=== PATIENT | female | born 1970 | race Hispanic/Latino ===

== ENCOUNTER 2017-01-04 17:11 | Emergency (ER) | payer MEDICAID ==
[2017-01-04] MEDS ORDERED: Sodium Chloride 0.9% 1,000 ML IV ONE (18:04)
[2017-01-04] MEDS ORDERED: Iohexol 240 (50 ml) PO STA (18:04)
[2017-01-04] MEDS ORDERED: Iohexol 240 (50 ml) ONE (18:23)
[2017-01-04] MEDS ORDERED: Sodium Chloride 0.9% 1,000 ML ONE (18:23)
[2017-01-04 18:26] LABS: BASO # 0.1 K/uL (0.0-0.2); BASO % 1.1 % (0.0-2.0); EOS # 0.2 K/uL (0.0-0.7); EOS % 1.9 % (0.0-4.0); HEMOGLOBIN 13.7 g/dL (11.0-16.0); LYMPH # 3.2 K/uL (1.0-4.3); LYMPH % 30.2 % (20.0-40.0); MEAN CORPUSCULAR HEMOGLOBIN 32.3 pg (27.0-31.0); MEAN CORPUSCULAR HGB CONC 34.2 g/dL (33.0-37.0); MONO # 0.6 K/uL (0.0-0.8); MONO % 5.6 % (0.0-10.0); NEUT # 6.5 K/uL (1.8-7.0); NEUT % 61.2 % (50.0-75.0); NRBC % 0.2 % (0.0-2.0); RBC 4.25 Mil/uL (3.80-5.20); RED CELL DISTRIBUTION WIDTH 14.5 % (11.5-14.5); WHITE BLOOD COUNT 10.6 K/uL (4.8-10.8)
[2017-01-04 18:28] LABS: MEAN CELL VOLUME 94.5 fL (81.0-99.0)
[2017-01-04 18:32] LABS: ALBUMIN 3.9 g/dL (3.5-5.0)
[2017-01-04 18:35] LABS: ALB/GLOB RATIO 1.5 (1.0-2.1); ALT/SGPT 31 U/L (9-52); AST/SGOT 29 U/L (14-36); BLOOD UREA NITROGEN 12 mg/dL (7-17); CALCIUM 7.8 mg/dl (8.6-10.4); GFR AFRICAN-AMERICAN > 60; GFR NON-AFRICAN AMERICAN > 60; LIPASE 155 U/L (23-300)
[2017-01-04 18:53] LABS: SQUAMOUS EPITHIAL 10 /hpf (0-5); URINE BACTERIA RARE (<OCC); URINE BILIRUBIN NEGATIVE (NEGATIVE); URINE BLOOD 2+ (NEGATIVE); URINE CLARITY Hazy (Clear); URINE COLOR Yellow (YELLOW); URINE GLUCOSE (UA) NORMAL (Normal); URINE LEUKOCYTE ESTERASE NEG Leu/uL (Negative); URINE NITRATE NEGATIVE (NEGATIVE); URINE PROTEIN NEGATIVE (NEGATIVE); URINE UROBILINOGEN NORMAL mg/dL (0.2-1.0)
[2017-01-04 18:56] LABS: HCG,QUALITATIVE URINE NEGATIVE (NEGATIVE)
[2017-01-04] MEDS ORDERED: Iohexol 300 100 ML IJ ONE (19:26)
--- NOTE | 2017-01-04 20:36 | CT ---
EXAM: CT Abdomen and Pelvis With Intravenous Contrast CLINICAL HISTORY: 46 years old, female; Pain and signs and symptoms; Bloating; Abdominal pain; Generalized; Additional info: Abd pain and distension. TECHNIQUE: Axial computed tomography images of the abdomen and pelvis with intravenous contrast. This CT exam was performed using one or more of the following dose reduction techniques: automated exposure control, adjustment of the mA and/or kV according to patient size, and/or use of iterative reconstruction technique. Coronal and sagittal reformatted images were created and reviewed. CONTRAST: 100 mL of omnipaque 300 administered intravenously. EXAM DATE/TIME: Exam ordered 01/04/2017 7:03 PM COMPARISON: CR - ABDOMEN (FLAT PLATE) 1VIEW 09/28/2015 5:05:26 PM FINDINGS: Lower thorax: No acute findings. ABDOMEN: Liver: The liver measures 18 cm in craniocaudal span. This may be acute due to the presence of a Roseanne's lobe. . Gallbladder and bile ducts: Unremarkable. No calcified stones. No ductal dilation. Pancreas: Unremarkable. No mass. No ductal dilation. Spleen: The spleen measures 10 cm in craniocaudal span Adrenals: Unremarkable. No mass. Kidneys and ureters: There is mild fullness of the central collecting systems bilaterally. . Stomach and bowel: Unremarkable. No obstruction. No mucosal thickening. Appendix: No findings to suggest acute appendicitis. PELVIS: Bladder: Unremarkable. No mass. Reproductive: The uterus appears enlarged measuring 11.6 x 6 x 9.4 cm A 2.4 cm cyst is noted in the left ovary. The right ovary is not deftly seen as a separate structure. ABDOMEN and PELVIS: Intraperitoneal space: Unremarkable. No free air. No significant fluid collection. Bones/joints: No acute fracture. No dislocation. Soft tissues: Unremarkable. Vasculature: Unremarkable. No abdominal aortic aneurysm. Lymph nodes: Unremarkable. No enlarged lymph nodes. IMPRESSION: 1. Mild fullness of the renal collecting systems bilaterally. The bladder is decompressed but the uterus is enlarged and exerting mass effect on the bladder 2. Enlarged liver which appears to be related to the presence of a Roseanne's lobe 3. 2.4 cm cyst in the left ovary . The size is considered within the range of normal for a menstruating female. The internal architecture of the cyst is better evaluated with ultrasound if this is clinically relevant
--- NOTE | 2017-01-04 21:12 | C.PDOC ---
Time Seen by Provider: 01/04/17 17:55 Chief Complaint (Nursing): Abdominal Pain History Per: Patient Onset/Duration Of Symptoms: Days (months), Waxing/Waning Current Symptoms Are (Timing): Still Present Severity: Moderate Location Of Pain/Discomfort: Diffuse, Epigastric Quality Of Discomfort: Unable To Describe, "Pain" Exacerbating Factors: Food Alleviating Factors: None Additional History Per: Prior Records Abnormal Vaginal Bleeding: No Past Medical History Reviewed: Historical Data, Nursing Documentation, Vital Signs Vital Signs: Last Vital Signs Temp 98.3 F 01/04/17 17:18 Pulse 89 01/04/17 17:18 Resp 13 01/04/17 17:18 BP 113/73 01/04/17 17:18 Pulse Ox 95 01/04/17 17:18 - Medical History PMH: Anxiety, Asthma, Post Traumatic Stress Disorder Surgical History: No Surg Hx Family History: States: Unknown Family Hx - Social History Hx Tobacco Use: Yes Hx Alcohol Use: Yes (DENIES 01/04/2017) Hx Substance Use: No - Immunization History Hx Tetanus Toxoid Vaccination: No Hx Influenza Vaccination: No Hx Pneumococcal Vaccination: No Review Of Systems Except As Marked, All Systems Reviewed And Found Negative. Constitutional: Negative for: Fever, Weakness Cardiovascular: Negative for: Chest Pain Respiratory: Negative for: Shortness of Breath Gastrointestinal: Positive for: Abdominal Pain. Negative for: Diarrhea Genitourinary: Negative for: Dysuria Musculoskeletal: Negative for: Neck Pain Skin: Negative for: Rash Neurological: Negative for: Weakness, Numbness, Seizures, Altered Mental Status Physical Exam - Physical Exam Appears: Non-toxic, No Acute Distress Skin: Normal Color, Warm, Dry, No Rash Head: Atraumatic, Normacephalic Eye(s): bilateral: Normal Inspection, PERRL, EOMI Neck: Normal ROM, Supple Cardiovascular: Rhythm Regular Respiratory: Normal Breath Sounds, No Accessory Muscle Use Gastrointestinal/Abdominal: Soft, Tenderness (nonspecific), Distention Back: No CVA Tenderness Extremity: Normal ROM, No Deformity Neurological/Psych: Oriented x3, Normal Motor, Normal Sensation ED Course And Treatment - Laboratory Results Result Diagrams: 01/04/17 18:21 01/04/17 18:21 Lab Interpretation: No Acute Changes Urine POC: Negative O2 Sat by Pulse Oximetry: 95 Pulse Ox Interpretation: Normal - CT Scan/US CT abd/pelv Other Rad Studies (CT/US): Read By Radiologist, Radiology Report Reviewed CT/US Interpretation: IMPRESSION: 1. Mild fullness of the renal collecting systems bilaterally. The bladder is. decompressed but the uterus is enlarged and exerting mass effect on the bladder. . 2. Enlarged liver which appears to be related to the presence of a Roseanne's lobe. . 3. 2.4 cm cyst in the left ovary . The size is considered within the range of. normal for a menstruating female. The internal architecture of the cyst is. better evaluated with ultrasound if this is clinically relevant Reassessment Condition: Improved Disposition Counseled Patient/Family Regarding: Studies Performed, Diagnosis, Need For Followup, Rx Given - Disposition Disposition: HOME/ ROUTINE Disposition Time: 21:13 Condition: STABLE Additional Instructions: Follow up with a Whipped Topping Supervisor and a Notching Press Operator for further evaluation and treatment. Return to the ER if you develop fever, vomiting, trouble urinating, worsening of symptoms or if you have any other concerns. Prescriptions: Pantoprazole Sodium [Protonix] 40 mg PO DAILY #14 ect Instructions: Uterine Fibroids (ED), Abdominal Pain (ED) Forms: [employer] (Slovenian) - Clinical Impression Clinical Impression: Enlarged uterus, Chronic abdominal pain
[2017-01-04 21:28] VITALS: BP 121/75; PULSE 87; RESP 16; TEMP 97.5; O2SAT 100
== END 2017-01-04 21:28 | disposition home or self-care (01) ==
LOC: C.ER 17:11
DX: G89.29 Other chronic pain (principal); R10.13 Epigastric pain; N85.2 Hypertrophy of uterus
CPT/HCPCS: 74177; 80053; 81001; 83690; 84703; 85025; 96361; 96374; 99284; J7040; Q9966; Q9967

== ENCOUNTER 2017-06-22 12:31 | Emergency (ER) | payer MEDICAID ==
[2017-06-22 12:38] VITALS: O2SAT 99
[2017-06-22] MEDS ORDERED: Belladonna-Phenobarbital PO STA (13:22)
[2017-06-22] MEDS ORDERED: Albuterol-Ipratrop 3 mg / 0.5 (3 ml) UD IH STA (13:23)
[2017-06-22] MEDS ORDERED: Lactated Ringer's 1,000 ML IVB STA (13:47)
[2017-06-22] MEDS ORDERED: Belladonna-Phenobarbital ONE (13:47)
[2017-06-22] MEDS ORDERED: Albuterol-Ipratrop 3 mg / 0.5 (3 ml) UD ONE (13:48)
[2017-06-22 14:08] LABS: BASO # 0.1 K/uL (0.0-0.2); BASO % 0.9 % (0.0-2.0); EOS # 0.1 K/uL (0.0-0.7); EOS % 1.4 % (0.0-4.0); HEMOGLOBIN 13.1 g/dL (11.0-16.0); LYMPH # 2.3 K/uL (1.0-4.3); LYMPH % 37.6 % (20.0-40.0); MEAN CELL VOLUME 94.7 fL (81.0-99.0); MEAN CORPUSCULAR HEMOGLOBIN 33.1 pg (27.0-31.0); MEAN PLATELET VOLUME 6.7 fL (7.2-11.7); MONO # 0.3 K/uL (0.0-0.8); MONO % 5.5 % (0.0-10.0); NEUT # 3.3 K/uL (1.8-7.0); NEUT % 54.6 % (50.0-75.0); RBC 3.96 Mil/uL (3.80-5.20); RED CELL DISTRIBUTION WIDTH 14.5 % (11.5-14.5); WHITE BLOOD COUNT 6.1 K/uL (4.8-10.8)
[2017-06-22 14:17] LABS: HCG,QUALITATIVE URINE NEGATIVE (NEGATIVE)
[2017-06-22 14:21] LABS: ALB/GLOB RATIO 1.4 (1.0-2.1); ALBUMIN 3.8 g/dL (3.5-5.0); ALT/SGPT 23 U/L (9-52); AST/SGOT 18 U/L (14-36); BLOOD UREA NITROGEN 12 mg/dL (7-17); CALCIUM 8.8 mg/dl (8.6-10.4); GFR AFRICAN-AMERICAN > 60; GFR NON-AFRICAN AMERICAN > 60; LIPASE 173 U/L (23-300); MAGNESIUM 1.8 mg/dL (1.6-2.3)
[2017-06-22 14:22] LABS: SQUAMOUS EPITHIAL 6 /hpf (0-5); URINE BACTERIA OCC (<OCC); URINE BILIRUBIN NEGATIVE (NEGATIVE); URINE BLOOD 2+ (NEGATIVE); URINE CLARITY Hazy (Clear); URINE COLOR Yellow (YELLOW); URINE GLUCOSE (UA) NORMAL (Normal); URINE LEUKOCYTE ESTERASE NEG Leu/uL (Negative); URINE NITRATE NEGATIVE (NEGATIVE); URINE PROTEIN NEGATIVE (NEGATIVE); URINE UROBILINOGEN NORMAL mg/dL (0.2-1.0)
--- NOTE | 2017-06-22 14:40 | RAD ---
HISTORY: Cough. Wheezing. COMPARISON: Chest x-ray performed 06/21/13 TECHNIQUE: Chest, one view. FINDINGS: LUNGS: No focal consolidation. Please note that chest x-ray has limited sensitivity for the detection of pulmonary masses. PLEURA: No significant pleural effusion identified. No definite pneumothorax . CARDIOVASCULAR: Heart size appears within normal limits. OSSEOUS STRUCTURES: No acute osseous abnormality identified. VISUALIZED UPPER ABDOMEN: Unremarkable. OTHER FINDINGS: None. IMPRESSION: No focal consolidation, significant pleural effusion, or definite pneumothorax identified.
--- NOTE | 2017-06-22 16:02 | C.PDOC ---
Time Seen by Provider: 06/22/17 13:10 Chief Complaint (Nursing): GI Problem History Per: Patient Onset/Duration Of Symptoms: Days (about 1 week) Current Symptoms Are (Timing): Still Present Associated Symptoms: Cough, Nasal Congestion, Nausea, Vomiting, Diarrhea Severity: Moderate Recent travel outside of the [place]: No Additional History Per: Prior Records Past Medical History Reviewed: Historical Data, Nursing Documentation, Vital Signs Vital Signs: Last Vital Signs Temp 97.9 F 06/22/17 12:34 Pulse 112 H 06/22/17 12:34 Resp 14 06/22/17 13:40 BP 126/79 06/22/17 12:34 Pulse Ox 99 06/22/17 12:34 - Medical History PMH: Anxiety, Asthma, Post Traumatic Stress Disorder Family History: States: Unknown Family Hx - Social History Hx Tobacco Use: Yes Hx Alcohol Use: Yes (DENIES 01/04/2017) Hx Substance Use: No - Immunization History Hx Tetanus Toxoid Vaccination: No Hx Influenza Vaccination: No Hx Pneumococcal Vaccination: No Review Of Systems Except As Marked, All Systems Reviewed And Found Negative. Cardiovascular: Negative for: Chest Pain Respiratory: Negative for: Shortness of Breath, Hemoptysis Gastrointestinal: Positive for: Nausea, Vomiting, Abdominal Pain, Diarrhea. Negative for: Melena, Hematochezia, Hematemesis Genitourinary: Negative for: Dysuria Musculoskeletal: Negative for: Neck Pain Skin: Negative for: Rash Neurological: Negative for: Weakness, Numbness Physical Exam - Physical Exam Appears: Non-toxic, No Acute Distress Skin: Normal Color, Warm, Dry, No Rash Head: Atraumatic, Normacephalic Eye(s): bilateral: Normal Inspection, PERRL, EOMI Neck: Normal ROM, Supple Cardiovascular: Rhythm Regular Respiratory: No Accessory Muscle Use, Wheezing Gastrointestinal/Abdominal: Soft, Tenderness (nonspecific) Back: No CVA Tenderness Extremity: Normal ROM Neurological/Psych: Oriented x3, Normal Motor, Normal Sensation ED Course And Treatment - Laboratory Results Result Diagrams: 06/22/17 14:03 06/22/17 14:03 Lab Interpretation: No Acute Changes Urine POC: Negative O2 Sat by Pulse Oximetry: 99 Pulse Ox Interpretation: Normal - Radiology CXR: Viewed By Me, Read By Radiologist CXR Interpretation: Yes: No Acute Disease Progress Note: After meds, lungs clear, abdominal pain resolved. Reassessment Condition: Improved Progress - Interventions Interventions:: Observation, Intravenous fluid - Medications Administered Inhaled nebulized: Anticholinergic, Beta-2 agonist Intravenous: Antiemetic, H-2 mayelin, NSAID - Data Reviewed Data Reviewed: Lab, Diagnostic imaging, Old records - Patient Status Patient status: Mostly improved - Continuity of Care Discussed patient case with:: Patient, ED Nurse - Patient Plan Patient Plan: Discharge, F/U with PCP, Continue present meds Disposition Counseled Patient/Family Regarding: Studies Performed, Diagnosis, Need For Followup, Rx Given - Disposition Disposition: HOME/ ROUTINE Disposition Time: 16:02 Condition: IMPROVED Additional Instructions: Drink plenty of fluids. Follow up with your doctor for further evaluation and treatment. Return to the ER if you develop shortness of breath, fever, not tolerating fluids, bloody stools, worsening of symptoms or if you have any other concerns. Prescriptions: Bismuth Subsalicylate [Pepto Bismol] 2 tab PO Q1 PRN #16 ctb PRN Reason: Diarrhea Ondansetron [Zofran] 4 mg PO Q8H PRN #15 tab PRN Reason: Nausea/Vomiting Instructions: Gastroenteritis (ED) Forms: [facility] (Maori) - Clinical Impression Clinical Impression: Influenza-like illness
[2017-06-22 16:40] VITALS: BP 120/72; PULSE 70; RESP 18; TEMP 98
== END 2017-06-22 16:40 | disposition home or self-care (01) ==
LOC: C.ER 12:31
DX: J11.1 Influenza due to unidentified influenza virus with other respiratory manifestations (principal)
CPT/HCPCS: 71045; 80053; 81001; 83690; 83735; 84703; 85025; 87804; 94640; 96374; 96375; 99285; J1885; J2405; J7120

== ENCOUNTER 2017-08-29 22:53 | Emergency (ER) | payer MEDICAID ==
[2017-08-29] MEDS ORDERED: Sodium Chloride 0.9% 1,000 ML IV ONE (23:36)
[2017-08-29] MEDS ORDERED: Alum-Mag Hydrox-Simethicone Susp (30 mL) PO STA (23:37)
[2017-08-29] MEDS ORDERED: Sodium Chloride 0.9% 1,000 ML ONE (23:57)
[2017-08-29] MEDS ORDERED: Alum-Mag Hydrox-Simethicone Susp (30 mL) ONE (23:57)
[2017-08-30 00:03] LABS: BASO # 0.1 K/uL (0.0-0.2); BASO % 0.6 % (0.0-2.0); EOS % 0.5 % (0.0-4.0); HEMOGLOBIN 13.7 g/dL (11.0-16.0); LYMPH # 2.1 K/uL (1.0-4.3); MEAN CELL VOLUME 96.5 fL (81.0-99.0); MEAN CORPUSCULAR HEMOGLOBIN 32.4 pg (27.0-31.0); MEAN CORPUSCULAR HGB CONC 33.6 g/dL (33.0-37.0); MEAN PLATELET VOLUME 6.9 fL (7.2-11.7); MONO # 0.6 K/uL (0.0-0.8); MONO % 6.9 % (0.0-10.0); NEUT # 5.9 K/uL (1.8-7.0); NRBC % 0.1 % (0.0-2.0); RBC 4.21 Mil/uL (3.80-5.20); RED CELL DISTRIBUTION WIDTH 15.7 % (11.5-14.5); WHITE BLOOD COUNT 8.6 K/uL (4.8-10.8)
[2017-08-30 00:07] LABS: ALB/GLOB RATIO 1.3 (1.0-2.1); ALBUMIN 4.4 g/dL (3.5-5.0); ALT/SGPT 45 U/L (9-52); AST/SGOT 58 U/L (14-36); BLOOD UREA NITROGEN 25 mg/dL (7-17); CALCIUM 9.3 mg/dl (8.6-10.4); GFR AFRICAN-AMERICAN > 60; GFR NON-AFRICAN AMERICAN > 60; LIPASE 299 U/L (23-300)
--- NOTE | 2017-08-30 00:27 | C.PDOC ---
Time Seen by Provider: 08/29/17 23:36 Chief Complaint (Nursing): Abdominal Pain History Per: Patient Onset/Duration Of Symptoms: Days, Waxing/Waning Current Symptoms Are (Timing): Worse Severity: Moderate Location Of Pain/Discomfort: Epigastric Radiation Of Pain To:: Chest Quality Of Discomfort: Burning Associated Symptoms: Nausea, Vomiting Exacerbating Factors: Food Additional History Per: Prior Records Past Medical History Reviewed: Historical Data, Nursing Documentation, Vital Signs Vital Signs: Last Vital Signs Temp 97.6 F 08/29/17 23:08 Pulse 102 H 08/29/17 23:08 Resp 16 08/29/17 23:08 BP 146/79 08/29/17 23:08 Pulse Ox 98 08/29/17 23:08 - Medical History PMH: Anxiety, Asthma, Hiatal Hernia, Post Traumatic Stress Disorder Family History: States: Unknown Family Hx - Social History Hx Tobacco Use: Yes Hx Alcohol Use: No Hx Substance Use: No - Immunization History Hx Tetanus Toxoid Vaccination: No Hx Influenza Vaccination: No Hx Pneumococcal Vaccination: No Review Of Systems Except As Marked, All Systems Reviewed And Found Negative. Constitutional: Negative for: Fever, Weakness Respiratory: Negative for: Shortness of Breath, Hemoptysis Gastrointestinal: Positive for: Nausea, Vomiting, Abdominal Pain. Negative for : Diarrhea, Constipation, Melena, Hematochezia, Hematemesis Musculoskeletal: Negative for: Neck Pain Skin: Negative for: Rash Neurological: Negative for: Weakness, Numbness, Headache Physical Exam - Physical Exam Appears: Non-toxic, No Acute Distress Skin: Normal Color, Warm, Dry, No Rash Head: Atraumatic, Normacephalic Eye(s): bilateral: Normal Inspection, PERRL, EOMI Neck: Normal ROM, Supple Cardiovascular: Rhythm Regular Respiratory: Normal Breath Sounds, No Accessory Muscle Use Gastrointestinal/Abdominal: Soft, Tenderness (epigastric), No Guarding, No Rebound Back: No CVA Tenderness Extremity: Normal ROM Neurological/Psych: Oriented x3, Normal Motor, Normal Sensation ED Course And Treatment - Laboratory Results Result Diagrams: 08/29/17 23:51 08/29/17 23:51 Interpretation Of Abnormal: Elevated BUN. ECG: Interpreted By Me, Viewed By Me ECG Rhythm: Sinus Tachycardia, Nonspecific Changes Rate From EC O2 Sat by Pulse Oximetry: 98 Pulse Ox Interpretation: Normal Progress Note: Pt feels better and wants to go home. Reassessment Condition: Improved Progress - Interventions Interventions:: Observation, Intravenous fluid - Medications Administered Oral: Antacid Intravenous: Antiemetic, H-2 mayelin - Data Reviewed Data Reviewed: Lab, EKG, Old records - Patient Status Patient status: Mostly improved - Continuity of Care Discussed patient case with:: Patient, ED Nurse - Patient Plan Patient Plan: Discharge, F/U with PCP, Continue present meds Disposition Counseled Patient/Family Regarding: Studies Performed, Diagnosis, Need For Followup, Rx Given - Disposition Referrals: Spencer Nair MD [Staff Provider] - Disposition: HOME/ ROUTINE Disposition Time: 00:29 Condition: IMPROVED Additional Instructions: Continue taking your Nexium. Follow up with a [facility] Consultant within 1-2 weeks for further evaluation and treatment. Return to the ER if you develop fever, vomiting, bloody or black stools, worsening of symptoms or if you have any other concerns. Prescriptions: Metoclopramide [Reglan] 1 tab PO TID PRN #15 tab PRN Reason: Nausea/Vomiting Sucralfate [Carafate Tab] 1 gm PO QID #120 tab Instructions: Gastritis (DC) Forms: [facility] (Sinhala) - Clinical Impression Clinical Impression: Epigastric pain
[2017-08-30 11:55] VITALS: BP 117/76; PULSE 96; RESP 20; TEMP 98; O2SAT 99
--- NOTE | 2017-09-03 21:18 | CARD ---
APPROVED REPORT EKG Measurement Heart [id number] <Conclusion> Sinus tachycardia Otherwise normal ECG
== END 2017-08-30 01:05 | disposition home or self-care (01) ==
LOC: C.ER 22:53
DX: R10.13 Epigastric pain (principal); Z72.0 Tobacco use
CPT/HCPCS: 80053; 83690; 84484; 85025; 96374; 96375; 99285; J2765; J7040

== ENCOUNTER 2017-09-25 09:44 | Emergency (ER) | payer MEDICAID ==
--- NOTE | 2017-09-25 11:22 | C.PDOC ---
History Of Present Illness 46 y/o female presents to the ED complaining of right hand and wrist pain, onset today. States at the gym this morning she was lifting weights and put the weight down in a weird way. Now complaining of pain at the 1st MCP area shooting to the right wrist. No changes in sensation. Patient is able to move all digits. Time Seen by Provider: 09/25/17 10:27 Chief Complaint (Nursing): Finger,Hand,&Wrist History Per: Patient History/Exam Limitations: no limitations Onset/Duration Of Symptoms: Hrs Current Symptoms Are (Timing): Still Present Past Medical History Reviewed: Historical Data, Nursing Documentation, Vital Signs Vital Signs: Last Vital Signs Temp 98.4 F 09/25/17 11:38 Pulse 86 09/25/17 11:38 Resp 18 09/25/17 11:38 BP 114/68 09/25/17 11:38 Pulse Ox 95 09/25/17 13:58 - Medical History PMH: Anxiety, Asthma, Hiatal Hernia, Post Traumatic Stress Disorder Denies: Chronic Kidney Disease Other Surgeries: Abdominal laparoscopy Family History: States: Unknown Family Hx - Social History Hx Tobacco Use: Yes Hx Alcohol Use: Yes Hx Substance Use: No - Immunization History Hx Tetanus Toxoid Vaccination: No Hx Influenza Vaccination: No Hx Pneumococcal Vaccination: No Review Of Systems Except As Marked, All Systems Reviewed And Found Negative. Musculoskeletal: Positive for: Hand Pain Skin: Negative for: Lesions Neurological: Negative for: Weakness, Numbness Physical Exam - Physical Exam Appears: Non-toxic, No Acute Distress Skin: Normal Color, Warm, Dry Extremity: Tenderness (to the right thumb and along radial aspect of wrist), No Deformity, No Swelling (or erythema), Other Pulses: Left Radial: Normal, Right Radial: Normal Neurological/Psych: Oriented x3, Normal Speech ED Course And Treatment O2 Sat by Pulse Oximetry: 95 (RA) Pulse Ox Interpretation: Normal - Other Rad X-RAY R WRIST X-Ray: Viewed By Me, Read By Radiologist Interpretation: FINDINGS: BONES: No acute fracture or destructive bony lesion identified. The navicular bone appears intact. JOINTS: Normal. No dislocation. SOFT TISSUES: Normal. OTHER FINDINGS: None. IMPRESSION: Unremarkable right wrist radiographs. X-RAY R HAND X-Ray: Viewed By Me, Read By Radiologist Interpretation: FINDINGS: BONES: Old healed 5th metacarpal boxer's fracture. No acute fracture identified. No destructive bony lesion appreciable throughout. JOINTS: Normal. No osteoarthritic changes. SOFT TISSUES: Normal. OTHER FINDINGS: None. IMPRESSION: No acute fracture, subluxation or dislocation. Old healed right 5th metacarpal boxer's fracture identified. Medical Decision Making Medical Decision Making: Impression: 46 y/o with right wrist and hand pain Plan: * x-ray right hand * x-ray right wrist X-ray results discussed with patient. Patient is stable for d/c home. Counseled regarding diagnosis of sprain. Thumb spica splint applied by laser/electro optics technician and checked by me. Referral to hand specialist provided. Disposition - Disposition Referrals: Oscar Moore MD [Staff Provider] - Disposition: HOME/ ROUTINE Disposition Time: 11:20 Condition: STABLE Additional Instructions: Follow up with Hand specialist within 2-3 days. Return to ED if feel worse. Prescriptions: Ibuprofen [Motrin Tab] 400 mg PO Q8 #30 tab Instructions: Finger Sprain (DC) Forms: [employer] (Spanish), School Excuse - Clinical Impression Clinical Impression: Thumb sprain - PA / SUCTION WORKER / Resident Statement MD/DO has reviewed & agrees with the documentation as recorded. - Scribe Statement The provider has reviewed the documentation as recorded by the Scribe (Marisabel Song) All medical record entries made by the Scribe were at my direction and personally dictated by me. I have reviewed the chart and agree that the record accurately reflects my personal performance of the history, physical exam, medical decision making, and the department course for this patient. I have also personally directed, reviewed, and agree with the discharge instructions and disposition.
--- NOTE | 2017-09-25 11:34 | RAD ---
PROCEDURE: Right Hand Radiographs. HISTORY: injury COMPARISON: None. FINDINGS: BONES: Old healed 5th metacarpal boxer's fracture. No acute fracture identified. No destructive bony lesion appreciable throughout. JOINTS: Normal. No osteoarthritic changes. SOFT TISSUES: Normal. OTHER FINDINGS: None. IMPRESSION: No acute fracture, subluxation or dislocation. Old healed right 5th metacarpal boxer's fracture identified.
--- NOTE | 2017-09-25 11:35 | RAD ---
PROCEDURE: Right Wrist Radiographs. HISTORY: injury COMPARISON: None. FINDINGS: BONES: No acute fracture or destructive bony lesion identified. The navicular bone appears intact. JOINTS: Normal. No dislocation. SOFT TISSUES: Normal. OTHER FINDINGS: None. IMPRESSION: Unremarkable right wrist radiographs.
[2017-09-25 11:39] VITALS: BP 114/68; PULSE 86; RESP 18; TEMP 98.4
[2017-09-25 13:39] VITALS: O2SAT 95
== END 2017-09-25 11:40 | disposition home or self-care (01) ==
LOC: C.ER 09:44
DX: S63.601A Unspecified sprain of right thumb, initial encounter (principal); X50.0XXA Overexertion from strenuous movement or load, initial encounter; Z72.0 Tobacco use

== ENCOUNTER 2018-08-11 19:15 | Inpatient (IN) | payer MEDICAID ==
[2018-08-11] MEDS ORDERED: Sodium Chloride 0.9% 1,000 ML IV ONE (19:47)
[2018-08-11] MEDS ORDERED: Sucralfate 1 gm/10 ml Oral Susp UD PO STA (19:47)
--- NOTE | 2018-08-11 19:49 | C.PDOC ---
History Of Present Illness 47 year old female presents to the ED c/o abdominal discomfort after eating. Patient reports she had hernia in the past. Patient denies fever, chills, nausea, vomit, diarrhea, rash, dysuria, hematuria, weakness, numbness. Chief Complaint (Nursing): GI Problem History Per: Patient History/Exam Limitations: no limitations Onset/Duration Of Symptoms: Days Current Symptoms Are (Timing): Still Present Context: Food Location Of Pain/Discomfort: Epigastric Radiation Of Pain To:: Other Quality Of Discomfort: "Pain" Associated Symptoms: denies: Nausea, Vomiting, Diarrhea, Urinary Symptoms Exacerbating Factors: Food Recent travel outside of the [place]: No Additional History Per: Patient Abnormal Vaginal Bleeding: No Past Medical History Reviewed: Historical Data, Nursing Documentation, Vital Signs Vital Signs: Last Vital Signs Temp 98.4 F 08/11/18 19:27 Pulse 101 H 08/11/18 19:27 Resp 20 08/11/18 19:27 BP 125/78 08/11/18 19:27 Pulse Ox 98 08/11/18 19:27 - Medical History PMH: Anxiety, Asthma, Hiatal Hernia, Post Traumatic Stress Disorder Denies: Chronic Kidney Disease Surgical History: No Surg Hx Family History: States: Unknown Family Hx - Social History Hx Tobacco Use: Yes Hx Alcohol Use: Yes Hx Substance Use: No - Immunization History Hx Tetanus Toxoid Vaccination: No Hx Influenza Vaccination: No Hx Pneumococcal Vaccination: No Review Of Systems Constitutional: Negative for: Fever, Chills Cardiovascular: Negative for: Chest Pain Respiratory: Negative for: Shortness of Breath Gastrointestinal: Positive for: Abdominal Pain. Negative for: Nausea, Vomiting, Diarrhea Genitourinary: Negative for: Dysuria, Hematuria Musculoskeletal: Negative for: Back Pain Skin: Negative for: Rash Physical Exam - Physical Exam Appears: Non-toxic, No Acute Distress Skin: Normal Color, Warm, Dry Head: Atraumatic, Normacephalic Eye(s): bilateral: Normal Inspection Oral Mucosa: Moist Neck: Normal ROM Chest: Symmetrical Cardiovascular: Rhythm Regular Respiratory: Normal Breath Sounds, No Rales, No Rhonchi, No Wheezing Gastrointestinal/Abdominal: Soft, Tenderness (epigastric), No Guarding, No Rebound Back: No CVA Tenderness Extremity: Normal ROM, No Tenderness, No Swelling Neurological/Psych: Oriented x3, Normal Speech, Normal Cognition Gait: Steady ED Course And Treatment - Laboratory Results Result Diagrams: 08/11/18 20:06 08/11/18 20:06 ECG: Interpreted By Me, Viewed By Me ECG Rhythm: Sinus Rhythm ECG Interpretation: Normal Interpretation Of ECG: NSR< nofrmal tracings. Rate From EC O2 Sat by Pulse Oximetry: 98 (ON RA) Pulse Ox Interpretation: Normal - Radiology CXR: Interpreted by Me, Viewed By Me CXR Interpretation: Yes: No Acute Disease, Other (normal chest film). No: Infiltrates - CT Scan/US CT abd/pelvis Other Rad Studies (CT/US): Read By Radiologist, Radiology Report Reviewed CT/US Interpretation: EXAM: CT Abdomen and Pelvis with IV contrast. CLINICAL HISTORY: PATIENT WITH MID UPPER GASTRIC PAIN. TECHNIQUE: Axial computed tomography images of the abdomen and pelvis with oral and intravenous contrast. 0.00 mGy-cm. CONTRAST: With; VISI 320 100MLS. COMPARISON: None provided. FINDINGS: LUNG BASES: The lung bases appear clear. No pleural effusions are seen. LIVER: Unremarkable. GALLBLADDER AND BILE DUCTS: The gallbladder appears within normal limits. No radioopaque gallstones are seen. No biliary ductal dilatation is evident. PANCREAS: Unremarkable. SPLEEN: Unremarkable. ADRENAL GLANDS: Unremarkable. KIDNEYS, URETERS, AND BLADDER: The kidneys appear within normal limits. There is no hydronephrosis or hydroureter. No urinary calculi are seen. STOMACH AND BOWEL: Small hiatal hernia is noted. Thick walled fluid filled duodenum and loops of jejunum as well as ileum compatible with enteritis. Thick walled fluid filled colon is noted with involvement of all segments compatible with diffuse pancolitis. Infectious and inflammatory etiologies are considered. APPENDIX: No evidence of acute appendicitis on CT examination. PERITONEUM: No free fluid. No free air. LYMPH NODES: No lymphadenopathy is evident. REPRODUCTIVE: Unremarkable as visuali zed. VASCULATURE: No evidence of abdominal aortic aneurysm. BONES: No aggressive appearing osseous lesion. No acute osseous pathology evident. IMPRESSION: 1. Small hiatal hernia is noted. 2. Enterocolitis. Infectious and inflammatory etiologies are considered. . Electronically signed on Aug 11, 2018 11:48:23 PM EDT by: Miguel Fernandez M.D., KAUSHIK Certified By ABR & CBCCT. Fellowship Trained MRI and CT Specialist Medical Decision Making Medical Decision Making: Plan: * EKG * Labs * Carafate 1 gm * Protonix 40 mg IVP * IV fluids * UA Disposition Discussed With Dr.: Hansel Martin Doctor Will See Patient In The: Hospital Counseled Patient/Family Regarding: Diagnosis - Disposition Disposition: HOSPITALIZED Disposition Time: 00:35 Condition: STABLE Instructions: Hiatal Hernia (DC) Forms: [employer] (Romanian) - Clinical Impression Clinical Impression: Hiatal hernia, Colitis, acute, Enteritis, Abdominal pain - Scribe Statement The provider has reviewed the documentation as recorded by the Scribe Dilan Michael All medical record entries made by the Scribe were at my direction and personally dictated by me. I have reviewed the chart and agree that the record accurately reflects my personal performance of the history, physical exam, medical decision making, and the department course for this patient. I have also personally directed, reviewed, and agree with the discharge instructions and disposition.
[2018-08-11 20:06] LABS: HCG,QUALITATIVE URINE NEGATIVE (NEGATIVE)
[2018-08-11] MEDS ORDERED: Sodium Chloride 0.9% 1,000 ML ONE (20:06)
[2018-08-11 20:08] LABS: SQUAMOUS EPITHIAL 2 /hpf (0-5); URINE BACTERIA RARE (<OCC); URINE BILIRUBIN NEGATIVE (NEGATIVE); URINE CLARITY Clear (Clear); URINE COLOR Yellow (YELLOW); URINE GLUCOSE (UA) NORMAL (Normal); URINE LEUKOCYTE ESTERASE NEG Leu/uL (Negative); URINE PROTEIN NEGATIVE (NEGATIVE); URINE UROBILINOGEN NORMAL mg/dL (0.2-1.0)
[2018-08-11 20:10] LABS: BASO # 0.1 K/uL (0.0-0.2); BASO % 0.7 % (0.0-2.0); EOS # 0.1 K/uL (0.0-0.7); EOS % 1.1 % (0.0-4.0); HEMOGLOBIN 12.8 g/dL (11.0-16.0); LYMPH # 2.2 K/uL (1.0-4.3); MEAN CELL VOLUME 96.7 fL (81.0-99.0); MEAN CORPUSCULAR HEMOGLOBIN 32.3 pg (27.0-31.0); MEAN CORPUSCULAR HGB CONC 33.4 g/dL (33.0-37.0); MEAN PLATELET VOLUME 6.9 fL (7.2-11.7); MONO # 0.3 K/uL (0.0-0.8); MONO % 3.9 % (0.0-10.0); NEUT # 5.4 K/uL (1.8-7.0); NEUT % 67.3 % (50.0-75.0); NRBC % 0.1 % (0.0-2.0); RBC 3.97 Mil/uL (3.80-5.20); RED CELL DISTRIBUTION WIDTH 14.6 % (11.5-14.5)
[2018-08-11 20:12] LABS: URINE BLOOD TRACE-LYSED (NEGATIVE)
[2018-08-11 20:25] LABS: ALB/GLOB RATIO 1.8 (1.0-2.1); ALBUMIN 4.1 g/dL (3.5-5.0); ALT/SGPT 29 U/L (9-52); AST/SGOT 29 U/L (14-36); BLOOD UREA NITROGEN 14 mg/dL (7-17); CALCIUM 8.6 mg/dl (8.6-10.4); GFR NON-AFRICAN AMERICAN > 60; LIPASE 348 U/L (23-300)
[2018-08-11] MEDS ORDERED: Iohexol 240 (50 ml) ONE (20:36)
[2018-08-11] MEDS ORDERED: Iohexol 240 (50 ml) PO ONE (20:38)
[2018-08-11] MEDS ORDERED: Iodixanol 320 MG/ML 100 ML BOTTLE IV ONE (22:01)
[2018-08-12] MEDS ORDERED: Ciprofloxacin 400mg/200ml D5W 400 MG/200 ML BAG IVPB STA (00:40)
[2018-08-12] MEDS ORDERED: metroNIDAZOLE IV 500 mg/100 ml 500 MG/100 ML BAG ONE (00:47)
[2018-08-12] MEDS: metroNIDAZOLE IV 500 mg/100 ml 500 MG/100 ML BAG IVPB SCH ×3 (00:55→17:38)
[2018-08-12 01:43] VITALS: RESP 20
[2018-08-12] MEDS: Sodium Chloride 0.9% 1,000 ML IV SCH ×3 (04:08→21:57)
--- NOTE | 2018-08-12 08:27 | CP.PCM.PN ---
Subjective - Date & Time of Evaluation Date of Evaluation: 08/12/18 Time of Evaluation: 08:27 - Subjective Subjective: Medicine Progress Note - Dr Wilfredo Martin's Service Patient is a 47 year old female with past medical history of asthma and acid reflux who presented to the emergency department for worsening epigastric pain. Patient states that for the past 4 days after eating she feels like her food gets stuck in her chest. She reports having 4-5 episodes of vomiting two days ago. Patient reports that her last bowel movement was yesterday and it was soft. For acid reflux she takes zantac occasionally. Patient states that she had an endoscopy 10 years ago that showed a hiatal hernia and a colonoscopy one year ago that showed diverticulosis. Currently she is resting and offers no complaints. Denies headaches, dizziness, cp, palpitations, sob, blood in stool, melena, changes in weight, urinary symptoms. Allergies: NKDA Medications: Ventolin inhaler, Zantac Medical History: Asthma, Acid reflux Surgical History: Multiple laparoscopies, exploratory laparotomy Social History: smokes 4 cig/day, drinks alcohol occasionally, denies history of drug use Family History: Grandparents - Colon cancer, Mother - breast cancer Objective - Vital Signs/Intake and Output Vital Signs (last 24 hours): Temp Pulse Resp BP Pulse Ox 98.5 F 83 20 108/74 98 08/12/18 07:34 08/12/18 07:34 08/12/18 07:34 08/12/18 07:34 08/12/18 07:34 Intake and Output: 08/12/18 08/12/18 06:59 18:59 Intake Total 350 Balance 350 - Medications Medications: Current Medications Enoxaparin Sodium (Lovenox) 40 mg SC DAILY [facility] Metronidazole (Flagyl) 500 mg in 100 mls @ 100 mls/hr IVPB STAT [facility]; Protocol Last Admin: 08/12/18 00:55 Dose: 100 mls/hr Ciprofloxacin (Cipro 400mg/200ml Dsw) 400 mg in 200 mls @ 133 mls/hr IVPB Q12H [facility]; Protocol Sodium Chloride (Sodium Chloride 0.9%) 1,000 mls @ 75 mls/hr IV .[id number] [facility] Last Admin: 08/12/18 04:08 Dose: 75 mls/hr Metronidazole (Flagyl) 500 mg in 100 mls @ 100 mls/hr IVPB Q8H [facility]; Protocol Influenza Virus Vaccine (Flucelvax Quad 9582-1360 Syr) 60 mcg IM .ONCE ONE Stop: 08/14/18 10:01 Morphine Sulfate (Morphine) 2 mg IVP Q4 PRN PRN Reason: Pain, moderate (4-7) Pantoprazole Sodium (Protonix Ec Tab) 40 mg PO DAILY [facility] Pneumococcal Polyvalent Vaccine (Pneumovax 23 Vaccine) 0.5 ml IM .ONCE ONE Stop: 08/14/18 10:01 - Labs Labs: 08/11/18 20:06 08/11/18 20:06 - Constitutional Appears: Toxic, No Acute Distress - Head Exam Head Exam: ATRAUMATIC, NORMAL INSPECTION, NORMOCEPHALIC - Eye Exam Eye Exam: EOMI, Normal appearance - ENT Exam ENT Exam: Mucous Membranes Moist - Respiratory Exam Respiratory Exam: Wheezes, NORMAL BREATHING PATTERN - Cardiovascular Exam Cardiovascular Exam: REGULAR RHYTHM, +S1, +S2 - GI/Abdominal Exam GI & Abdominal Exam: Distended, Soft, Tenderness (diffuse). absent: Firm, Guarding, Rigid - Extremities Exam Extremities Exam: Normal Inspection - Neurological Exam Neurological Exam: Alert, Awake, Oriented x3 - Psychiatric Exam Psychiatric exam: Normal Affect, Normal Mood - Skin Skin Exam: Normal Color Assessment and Plan - Assessment and Plan (Free Text) Assessment: Abdominal Pain -Stable, afebrile -Antibiotics: Flagyl 500mg Q8H, Cipro 400mg Q12H IVPB -Stool studies ordered -On clear liquid diet -CT abd/pelvis showed Apparent mild circumferential mural thickening in the gastric pylorus, duodenal cap and segmental proximal jejunal loops are nonspecific however could represent nonspecific infectious/inflammatory gastritis, duodenitis and enteritis. Clinical follow-up is advised. Constipation. No bowel obstruction. Mild hepatomegaly and fatty liver. -GI on consult, Dr Lorenzo, help appreciated Asthma -Duonebs x 1 ordered GI/DVT ppx: -Protonix 40mg PO daily -Lovenox 40mg SC daily Plan discussed with Dr Wilfredo Monae DO PGY-2
--- NOTE | 2018-08-12 08:29 | CP.PCM.CON ---
<Aury Jaime - Last Filed: 08/12/18 11:39> History of Present Illness - History of Present Illness History of Present Illness: Gastroenterology Fellow/PGY6 Consult Note 47 year old female with PMH of Anxiety, Asthma, and PTSD presenting with abdominal pain. Patient notes progressive postprandial epigastric pain with globus sensation to solids and liquids for the last four days. She attempted to take leftover antibiotic at home without relief for first three days for possible respiratory infection. Associated bilious vomiting of five episodes two days ago. Also describes heartburn, acid reflux, nausea, and intermittent diffuse nonspecific dull abdominal pain that she notes to be chronic in nature for most of her life. She takes Zantac daily with nexium used as needed to control symptoms of reflux. Admits to chronic alternating bowel habits with predominant formed stools and intermittent remote diarrhea for two days with spontaneous resolution. Last bowel movement in ER described as loose stool. Admits to chronic GI issues since childhood leading to laporoscopy and stated prior diagnosis of possible Crohn's and endorses different "treatments" without relief. Denies sick contacts, new foods, recent travel, rectal bleeding, skin rashes, back/hip pain, kidney stones, eye pain/redness, or unintentional weight loss. Notes prior EGD about ten years ago endorsed to have a hiatal hernia. Endorses colonoscopy one year ago to show diverticulosis. Family History- Colon cancer- maternal and paternal grandmothers- diagnosed at 50s and 60s years of age, paternal grandfather- diagnosed 60s years of age Social History- prior heavy tobaccox many years, current 4 cigarettes daily, prior daily alcohol use, endorses sobriety for a "few months"; denies illicit drug use Surgical History- laparoscopy Review of Systems - Review of Systems Review of Systems: 12-point review of systems negative except for as above Past Patient History - Infectious Disease Hx of Infectious Diseases: None - Past Medical History & Family History Past Medical History?: Yes - Past Social History Smoking Status: Light Smoker < 10 Cigarettes Daily - CARDIAC Hx Cardiac Disorders: No - PULMONARY Hx Respiratory Disorders: Yes Hx Asthma: Yes - NEUROLOGICAL Hx Neurological Disorder: No - HEENT Hx HEENT Problems: No - RENAL Hx Chronic Kidney Disease: No - ENDOCRINE/METABOLIC Hx Endocrine Disorders: No - HEMATOLOGICAL/ONCOLOGICAL Hx Blood Disorders: No - INTEGUMENTARY Hx Dermatological Problems: No - MUSCULOSKELETAL/RHEUMATOLOGICAL Hx Musculoskeletal Disorders: No Hx Falls: No - GASTROINTESTINAL Hx Gastrointestinal Disorders: No - GENITOURINARY/GYNECOLOGICAL Hx Genitourinary Disorders: No - PSYCHIATRIC Hx Psychophysiologic Disorder: Yes Hx Anxiety: Yes Hx Post Traumatic Stress Disorder: Yes Hx Substance Use: No - SURGICAL HISTORY Hx Surgeries: Yes Hx Breast Biopsy: Yes Other/Comment: abdominal laparoscopy. removal of basal cell to skin on upper chest - ANESTHESIA Hx Anesthesia: Yes Hx Anesthesia Reactions: No Hx Malignant Hyperthermia: No Meds Allergies/Adverse Reactions: Allergies Allergy/AdvReac Type Severity Reaction Status Date / Time No Known Allergies Allergy Verified 08/11/18 19:33 - Medications Medications: Current Medications Enoxaparin Sodium (Lovenox) 40 mg SC DAILY [facility] Metronidazole (Flagyl) 500 mg in 100 mls @ 100 mls/hr IVPB STAT [facility]; Protocol Last Admin: 08/12/18 00:55 Dose: 100 mls/hr Ciprofloxacin (Cipro 400mg/200ml Dsw) 400 mg in 200 mls @ 133 mls/hr IVPB Q12H [facility]; Protocol Sodium Chloride (Sodium Chloride 0.9%) 1,000 mls @ 75 mls/hr IV .[id number] [facility] Last Admin: 08/12/18 04:08 Dose: 75 mls/hr Metronidazole (Flagyl) 500 mg in 100 mls @ 100 mls/hr IVPB Q8H [facility]; Protocol Influenza Virus Vaccine (Flucelvax Quad [id number] Syr) 60 mcg IM .ONCE ONE Stop: 08/14/18 10:01 Morphine Sulfate (Morphine) 2 mg IVP Q4 PRN PRN Reason: Pain, moderate (4-7) Pantoprazole Sodium (Protonix Ec Tab) 40 mg PO DAILY [facility] Pneumococcal Polyvalent Vaccine (Pneumovax 23 Vaccine) 0.5 ml IM .ONCE ONE Stop: 08/14/18 10:01 Physical Exam - Constitutional Appears: Non-toxic, No Acute Distress - Head Exam Head Exam: ATRAUMATIC, NORMOCEPHALIC - Eye Exam Eye Exam: EOMI, PERRL. absent: Scleral icterus Pupil Exam: PERRL. absent: Miosis, Mydriatic - ENT Exam ENT Exam: Mucous Membranes Moist, Normal Oropharynx - Neck Exam Neck exam: Positive for: Full Rom, Normal Inspection - Respiratory Exam Respiratory Exam: Clear to Auscultation Bilateral. absent: Rales, Rhonchi, Wheezes - Cardiovascular Exam Cardiovascular Exam: RRR, +S1, +S2. absent: Gallop, Rubs - GI/Abdominal Exam GI & Abdominal Exam: Distended, Hypoactive Bowel Sounds, Soft, Tenderness. absent: Firm, Guarding, Organomegaly, Rebound, Rigid Additional comments: mild diffuse tenderness to palpation - Extremities Exam Extremities exam: Positive for: normal inspection. Negative for: pedal edema - Neurological Exam Neurological exam: Alert, Oriented x3 - Psychiatric Exam Psychiatric exam: Normal Affect, Normal Mood - Skin Skin Exam: Dry, Intact, Normal Color, Warm Results - Vital Signs Recent Vital Signs: Last Vital Signs Temp 98.5 F 08/12/18 07:34 Pulse 83 08/12/18 07:34 Resp 20 08/12/18 07:34 BP 108/74 08/12/18 07:34 Pulse Ox 98 08/12/18 07:34 - Labs Result Diagrams: 08/12/18 10:45 08/12/18 10:45 Labs: Laboratory Results - last 24 hr 08/11/18 08/11/18 08/11/18 19:53 20:06 20:06 WBC 8.0 RBC 3.97 Hgb 12.8 Hct 38.4 MCV 96.7 MCH 32.3 H MCHC 33.4 RDW 14.6 H Plt Count 196 MPV 6.9 L Neut % (Auto) 67.3 Lymph % (Auto) 27.0 Jerome % (Auto) 3.9 Eos % (Auto) 1.1 Baso % (Auto) 0.7 Neut # (Auto) 5.4 Lymph # (Auto) 2.2 Jerome # (Auto) 0.3 Eos # (Auto) 0.1 Baso # (Auto) 0.1 Sodium 141 Potassium 3.8 Chloride 107 Carbon Dioxide 25 Anion Gap 12 BUN 14 Creatinine 0.8 Est GFR ( Amer) > 60 Est GFR (Non-Af Amer) > 60 Random Glucose 121 H Calcium 8.6 Total Bilirubin 0.8 AST 29 ALT 29 Alkaline Phosphatase 86 Troponin I < 0.0120 Total Protein 6.3 Albumin 4.1 Globulin 2.2 Albumin/Globulin Ratio 1.8 Lipase 348 H Urine Color Yellow Urine Clarity Clear Urine pH 5.0 Ur Specific [place] 1.017 Urine Protein Negative Urine Glucose (UA) Normal Urine Ketones Negative Urine Blood Trace-lysed Urine Nitrate Negative Urine Bilirubin Negative Urine Urobilinogen Normal Ur Leukocyte Esterase Neg Urine WBC (Auto) < 1 Urine RBC (Auto) < 1 Ur Squamous Epith Cells 2 Urine Bacteria Rare Urine HCG, Qual Negative Assessment & Plan - Assessment and Plan (Free Text) Assessment: 47 year old female with PMH of Anxiety, Asthma, and PTSD presenting with postprandial epigastric pain. CT A/P IV contrast showed enterocolitis. Prior EGD about ten years ago endorsed to have a hiatal hernia. Endorses colonoscopy one year ago to show diverticulosis. Plan: -infectious, inflammatory, autoimmune -ordered Cdiff, stool culture, O&P -continue Cipro and Flagyl IV -continue IVFs -continue PPI -supportive care -patient to confirm physician that performed colonoscopy to contact and obtain records for review -will follow clinical course <Chino Lorenzo - Last Filed: 08/12/18 13:50> Meds - Medications Medications: Current Medications Enoxaparin Sodium (Lovenox) 40 mg SC DAILY [facility] Last Admin: 08/12/18 09:58 Dose: 40 mg Metronidazole (Flagyl) 500 mg in 100 mls @ 100 mls/hr IVPB STAT [facility]; Protocol Last Admin: 08/12/18 00:55 Dose: 100 mls/hr Sodium Chloride (Sodium Chloride 0.9%) 1,000 mls @ 75 mls/hr IV .[id number] [facility] Last Admin: 08/12/18 04:08 Dose: 75 mls/hr Metronidazole (Flagyl) 500 mg in 100 mls @ 100 mls/hr IVPB Q8H [facility]; Protocol Last Admin: 08/12/18 09:59 Dose: 100 mls/hr Ciprofloxacin (Cipro 400mg/200ml Dsw) 400 mg in 200 mls @ 133 mls/hr IVPB Q12H [facility]; Protocol Last Admin: 08/12/18 13:36 Dose: 133 mls/hr Influenza Virus Vaccine (Flucelvax Quad [id number] Syr) 60 mcg IM .ONCE ONE Stop: 08/14/18 10:01 Morphine Sulfate (Morphine) 2 mg IVP Q4 PRN PRN Reason: Pain, moderate (4-7) Last Admin: 08/12/18 13:42 Dose: 2 mg Pantoprazole Sodium (Protonix Ec Tab) 40 mg PO DAILY [facility] Last Admin: 08/12/18 09:58 Dose: 40 mg Pneumococcal Polyvalent Vaccine (Pneumovax 23 Vaccine) 0.5 ml IM .ONCE ONE Stop: 08/14/18 10:01 Results - Vital Signs Recent Vital Signs: Last Vital Signs Temp 98.5 F 08/12/18 07:34 Pulse 83 08/12/18 07:34 Resp 20 08/12/18 07:34 BP 108/74 08/12/18 07:34 Pulse Ox 98 08/12/18 07:34 - Labs Result Diagrams: 08/12/18 10:45 08/12/18 10:45 Labs: Laboratory Results - last 24 hr 08/11/18 08/11/18 08/11/18 19:53 20:06 20:06 WBC 8.0 RBC 3.97 Hgb 12.8 Hct 38.4 MCV 96.7 MCH 32.3 H MCHC 33.4 RDW 14.6 H Plt Count 196 MPV 6.9 L Neut % (Auto) 67.3 Lymph % (Auto) 27.0 Jerome % (Auto) 3.9 Eos % (Auto) 1.1 Baso % (Auto) 0.7 Neut # (Auto) 5.4 Lymph # (Auto) 2.2 Jerome # (Auto) 0.3 Eos # (Auto) 0.1 Baso # (Auto) 0.1 Sodium 141 Potassium 3.8 Chloride 107 Carbon Dioxide 25 Anion Gap 12 BUN 14 Creatinine 0.8 Est GFR ( Amer) > 60 Est GFR (Non-Af Amer) > 60 Random Glucose 121 H Calcium 8.6 Total Bilirubin 0.8 AST 29 ALT 29 Alkaline Phosphatase 86 Troponin I < 0.0120 Total Protein 6.3 Albumin 4.1 Globulin 2.2 Albumin/Globulin Ratio 1.8 Lipase 348 H Urine Color Yellow Urine Clarity Clear Urine pH 5.0 Ur Specific [place] 1.017 Urine Protein Negative Urine Glucose (UA) Normal Urine Ketones Negative Urine Blood Trace-lysed Urine Nitrate Negative Urine Bilirubin Negative Urine Urobilinogen Normal Ur Leukocyte Esterase Neg Urine WBC (Auto) < 1 Urine RBC (Auto) < 1 Ur Squamous Epith Cells 2 Urine Bacteria Rare Urine HCG, Qual Negative 08/12/18 08/12/18 10:45 10:45 WBC 6.6 RBC 3.54 L Hgb 11.4 Hct 34.2 MCV 96.7 MCH 32.3 H MCHC 33.4 RDW 14.5 Plt Count 191 MPV 7.0 L Neut % (Auto) 46.0 L Lymph % (Auto) 46.2 H [place] % (Auto) 5.8 Eos % (Auto) 1.6 Baso % (Auto) 0.4 Neut # (Auto) 3.0 Lymph # (Auto) 3.0 Jerome # (Auto) 0.4 Eos # (Auto) 0.1 Baso # (Auto) 0.0 Sodium 136 Potassium 3.8 Chloride 107 Carbon Dioxide 25 Anion Gap 8 L BUN 9 Creatinine 0.6 L Est GFR ( Amer) > 60 Est GFR (Non-Af Amer) > 60 Random Glucose 84 D Calcium 8.4 L Total Bilirubin 0.5 AST 28 ALT 34 Alkaline Phosphatase 84 Troponin I Total Protein 5.5 L Albumin 3.4 L Globulin 2.1 L Albumin/Globulin Ratio 1.7 Lipase Urine Color Urine Clarity Urine pH Ur Specific [place] Urine Protein Urine Glucose (UA) Urine Ketones Urine Blood Urine Nitrate Urine Bilirubin Urine Urobilinogen Ur Leukocyte Esterase Urine WBC (Auto) Urine RBC (Auto) Ur Squamous Epith Cells Urine Bacteria Urine HCG, Qual Attending/Attestation - Attestation I have personally seen and examined this patient.: Yes I have fully participated in the care of the patient.: Yes I have reviewed all pertinent clinical information: Yes Notes (Text): 08/12/18 13:44 I have seen and examined patient with GI fellow. Agree with above documentation with the following additions. In brief, this is a 47 year old female with history of anxiety, asthma who presents to hospital with complaint of progressive abdominal pain. She reports epigastric pain that is worse following meal consumption for the past 4 days. This was initially associated with nausea and non-bloody emesis. She also endorses worsening heartburn during this time with a globus sensation in throat. She otherwise denies fever/chills, weight loss, rectal bleeding, or change in bowel habits. She has been taking intermittent PPI/H2 mayelin therapy without significant benefit. She had a colonoscopy 1 year ago which showed diverticulosis as per patient. Anxiety Asthma Abdominal pain CT imaging reviewed by me showing enteritis and constipation - Liquid diet as tolerated - Continue with antibiotic therapy - Maintain bowel regimen to prevent constipation - Obtain stool studies - Obtain prior colonoscopy/biopsy report - Will continue to monitor patient clinical course
--- NOTE | 2018-08-12 09:39 | RAD ---
Date of service: 08/11/2018 HISTORY: lower chest area pain / epigastric discomfort COMPARISON: 06/22/2017 TECHNIQUE: Chest PA and lateral FINDINGS: LUNGS: Mild venous congestion. Diffuse increased interstitial lung markings. Nodular densities at the lung bases may represent nipple shadows. Correlation with nipple markers may be helpful. Upper lobe granulomatous changes. No gross focal infiltrate or effusion. PLEURA: No significant pleural effusion identified. No pneumothorax apparent. CARDIOVASCULAR: No aortic atherosclerotic calcification present. Normal cardiac size. OSSEOUS STRUCTURES: No significant abnormalities. VISUALIZED UPPER ABDOMEN: Normal. OTHER FINDINGS: None. IMPRESSION: Mild venous congestion. Diffuse increased interstitial lung markings. Nodular densities at the lung bases may represent nipple shadows. Correlation with nipple markers may be helpful. Upper lobe granulomatous changes. No gross focal infiltrate or effusion.
[2018-08-12] MEDS: Pantoprazole 40 mg EC Tab PO SCH (09:58)
[2018-08-12] MEDS: Enoxaparin 40 mg Syringe SC SCH (09:58)
[2018-08-12] MEDS ORDERED: Ciprofloxacin 400mg/200ml D5W 400 MG/200 ML BAG IVPB SCH (10:00)
--- NOTE | 2018-08-12 10:46 | CT ---
Date of service: 08/11/2018 PROCEDURE: CT Abdomen and Pelvis with contrast HISTORY: epigastric pain, elevated lipase COMPARISON: 01/04/2017. TECHNIQUE: CT scan of the abdomen and pelvis was performed after administration of intravenous contrast. Oral contrast was not administered. Coronal and sagittal reformatted images were obtained. Contrast dose: 100 mL Visipaque 320 Radiation dose: Total exam DLP = 384.12 mGy-cm. This CT exam was performed using one or more of the following dose reduction techniques: Automated exposure control, adjustment of the mA and/or kV according to patient size, and/or use of iterative reconstruction technique. FINDINGS: LOWER THORAX: The visualized lungs are clear. LIVER: Mild hepatomegaly and fatty liver. Normal homogeneous enhancement. No gross lesion or ductal dilatation. GALLBLADDER AND BILE DUCTS: Partially contracted. No calcified gallstones, wall thickening or pericholecystic fluid. PANCREAS: Normal in size with homogeneous enhancement. No gross lesion or ductal dilatation. SPLEEN: Normal in size and appearance. ADRENALS: No discrete nodule. KIDNEYS AND URETERS: Normal in size with homogeneous enhancement. Persistent mild fullness in bilateral collecting system. No solid mass. VASCULATURE: No aortic aneurysm. There are no aortic atherosclerotic calcifications or mural plaque present. BOWEL: There is mild circumferential mural thickening in the gastric pylorus and duodenal cap. There is also segmental circumferential mural thickening in the proximal jejunal loops. The distal small bowel loops are normal in caliber. There is moderate amount of stool in the colon. No bowel wall thickening or obstruction. APPENDIX: Normal appendix. PERITONEUM: No free fluid. No free air. LYMPH NODES: No enlarged lymph nodes. BLADDER: Well distended and normal in appearance. REPRODUCTIVE: The uterus is normal in size. BONES: No acute fracture. Within normal limits for the patient's age. OTHER FINDINGS: There is a small sliding hiatal hernia. IMPRESSION: Apparent mild circumferential mural thickening in the gastric pylorus, duodenal cap and segmental proximal jejunal loops are nonspecific however could represent nonspecific infectious/inflammatory gastritis, duodenitis and enteritis. Clinical follow-up is advised. Constipation. No bowel obstruction. Mild hepatomegaly and fatty liver. A preliminary report was provided by [facility]. The final report is tagged to the PA review folder.
[2018-08-12 10:58] LABS: BASO % 0.4 % (0.0-2.0); EOS # 0.1 K/uL (0.0-0.7); EOS % 1.6 % (0.0-4.0); HEMOGLOBIN 11.4 g/dL (11.0-16.0); LYMPH % 46.2 % (20.0-40.0); MEAN CELL VOLUME 96.7 fL (81.0-99.0); MEAN CORPUSCULAR HEMOGLOBIN 32.3 pg (27.0-31.0); MEAN CORPUSCULAR HGB CONC 33.4 g/dL (33.0-37.0); MONO # 0.4 K/uL (0.0-0.8); MONO % 5.8 % (0.0-10.0); RBC 3.54 Mil/uL (3.80-5.20); RED CELL DISTRIBUTION WIDTH 14.5 % (11.5-14.5); WHITE BLOOD COUNT 6.6 K/uL (4.8-10.8)
[2018-08-12 11:16] LABS: ALB/GLOB RATIO 1.7 (1.0-2.1); ALBUMIN 3.4 g/dL (3.5-5.0); ALT/SGPT 34 U/L (9-52); AST/SGOT 28 U/L (14-36); BLOOD UREA NITROGEN 9 mg/dL (7-17); CALCIUM 8.4 mg/dl (8.6-10.4); GFR NON-AFRICAN AMERICAN > 60
[2018-08-12] MEDS ORDERED: Albuterol-Ipratrop 3 mg / 0.5 (3 ml) UD INH STA (11:19)
[2018-08-12] MEDS: Ciprofloxacin 400mg/200ml D5W 400 MG/200 ML BAG IVPB SCH (13:36)
--- NOTE | 2018-08-12 20:13 | CP.PCM.HP ---
Past Patient History - Infectious Disease Hx of Infectious Diseases: None - Past Medical History & Family History Past Medical History?: Yes - Past Social History Smoking Status: Light Smoker < 10 Cigarettes Daily - CARDIAC Hx Cardiac Disorders: No - PULMONARY Hx Respiratory Disorders: Yes Hx Asthma: Yes - NEUROLOGICAL Hx Neurological Disorder: No - HEENT Hx HEENT Problems: No - RENAL Hx Chronic Kidney Disease: No - ENDOCRINE/METABOLIC Hx Endocrine Disorders: No - HEMATOLOGICAL/ONCOLOGICAL Hx Blood Disorders: No - INTEGUMENTARY Hx Dermatological Problems: No - MUSCULOSKELETAL/RHEUMATOLOGICAL Hx Musculoskeletal Disorders: No Hx Falls: No - GASTROINTESTINAL Hx Gastrointestinal Disorders: No - GENITOURINARY/GYNECOLOGICAL Hx Genitourinary Disorders: No - PSYCHIATRIC Hx Psychophysiologic Disorder: Yes Hx Anxiety: Yes Hx Post Traumatic Stress Disorder: Yes Hx Substance Use: No - SURGICAL HISTORY Hx Surgeries: Yes Hx Breast Biopsy: Yes Other/Comment: abdominal laparoscopy. removal of basal cell to skin on upper chest - ANESTHESIA Hx Anesthesia: Yes Hx Anesthesia Reactions: No Hx Malignant Hyperthermia: No Meds Allergies/Adverse Reactions: Allergies Allergy/AdvReac Type Severity Reaction Status Date / Time No Known Allergies Allergy Verified 08/11/18 19:33 Physical Exam - Constitutional Appears: Well - Head Exam Head Exam: ATRAUMATIC, NORMAL INSPECTION, NORMOCEPHALIC - Eye Exam Eye Exam: EOMI, Normal appearance, PERRL Pupil Exam: NORMAL ACCOMODATION, PERRL - ENT Exam ENT Exam: Mucous Membranes Moist, Normal Exam - Neck Exam Neck exam: Positive for: Normal Inspection - Respiratory Exam Respiratory Exam: Decreased Breath Sounds - Cardiovascular Exam Cardiovascular Exam: REGULAR RHYTHM, +S1, +S2 - GI/Abdominal Exam GI & Abdominal Exam: Diminished Bowel Sounds, Soft - Rectal Exam Rectal Exam: Deferred Results - Vital Signs Recent Vital Signs: Last Vital Signs Temp 98.1 F 08/12/18 15:00 Pulse 91 H 08/12/18 15:00 Resp 20 08/12/18 15:00 BP 102/65 08/12/18 15:00 Pulse Ox 98 08/12/18 15:00 - Labs Result Diagrams: 08/12/18 10:45 08/12/18 10:45 Labs: Laboratory Results - last 24 hr 08/11/18 08/11/18 08/11/18 19:53 20:06 20:06 WBC 8.0 RBC 3.97 Hgb 12.8 Hct 38.4 MCV 96.7 MCH 32.3 H MCHC 33.4 RDW 14.6 H Plt Count 196 MPV 6.9 L Neut % (Auto) 67.3 Lymph % (Auto) 27.0 Bremer % (Auto) 3.9 Eos % (Auto) 1.1 Baso % (Auto) 0.7 Neut # (Auto) 5.4 Lymph # (Auto) 2.2 Bremer # (Auto) 0.3 Eos # (Auto) 0.1 Baso # (Auto) 0.1 Sodium 141 Potassium 3.8 Chloride 107 Carbon Dioxide 25 Anion Gap 12 BUN 14 Creatinine 0.8 Est GFR ( Amer) > 60 Est GFR (Non-Af Amer) > 60 Random Glucose 121 H Calcium 8.6 Total Bilirubin 0.8 AST 29 ALT 29 Alkaline Phosphatase 86 Troponin I < 0.0120 Total Protein 6.3 Albumin 4.1 Globulin 2.2 Albumin/Globulin Ratio 1.8 Lipase 348 H Urine Color Yellow Urine Clarity Clear Urine pH 5.0 Ur Specific Cross 1.017 Urine Protein Negative Urine Glucose (UA) Normal Urine Ketones Negative Urine Blood Trace-lysed Urine Nitrate Negative Urine Bilirubin Negative Urine Urobilinogen Normal Ur Leukocyte Esterase Neg Urine WBC (Auto) < 1 Urine RBC (Auto) < 1 Ur Squamous Epith Cells 2 Urine Bacteria Rare 08/12/18 08/12/18 10:45 10:45 WBC 6.6 RBC 3.54 L Hgb 11.4 Hct 34.2 MCV 96.7 MCH 32.3 H MCHC 33.4 RDW 14.5 Plt Count 191 MPV 7.0 L Neut % (Auto) 46.0 L Lymph % (Auto) 46.2 H Bremer % (Auto) 5.8 Eos % (Auto) 1.6 Baso % (Auto) 0.4 Neut # (Auto) 3.0 Lymph # (Auto) 3.0 Bremer # (Auto) 0.4 Eos # (Auto) 0.1 Baso # (Auto) 0.0 Sodium 136 Potassium 3.8 Chloride 107 Carbon Dioxide 25 Anion Gap 8 L BUN 9 Creatinine 0.6 L Est GFR ( Amer) > 60 Est GFR (Non-Af Amer) > 60 Random Glucose 84 D Calcium 8.4 L Total Bilirubin 0.5 AST 28 ALT 34 Alkaline Phosphatase 84 Troponin I Total Protein 5.5 L Albumin 3.4 L Globulin 2.1 L Albumin/Globulin Ratio 1.7 Lipase Urine Color Urine Clarity Urine pH Ur Specific Cross Urine Protein Urine Glucose (UA) Urine Ketones Urine Blood Urine Nitrate Urine Bilirubin Urine Urobilinogen Ur Leukocyte Esterase Urine WBC (Auto) Urine RBC (Auto) Ur Squamous Epith Cells Urine Bacteria
[2018-08-13] MEDS: metroNIDAZOLE IV 500 mg/100 ml 500 MG/100 ML BAG IVPB SCH ×4 (01:00→18:00)
[2018-08-13] MEDS: Ciprofloxacin 400mg/200ml D5W 400 MG/200 ML BAG IVPB SCH ×2 (02:07→14:15)
[2018-08-13 07:39] LABS: BASO % 0.4 % (0.0-2.0); EOS # 0.1 K/uL (0.0-0.7); EOS % 1.4 % (0.0-4.0); HEMOGLOBIN 12.7 g/dL (11.0-16.0); LYMPH # 2.8 K/uL (1.0-4.3); LYMPH % 39.7 % (20.0-40.0); MEAN CELL VOLUME 97.1 fL (81.0-99.0); MEAN CORPUSCULAR HEMOGLOBIN 33.1 pg (27.0-31.0); MEAN CORPUSCULAR HGB CONC 34.1 g/dL (33.0-37.0); MEAN PLATELET VOLUME 7.5 fL (7.2-11.7); MONO # 0.4 K/uL (0.0-0.8); MONO % 6.2 % (0.0-10.0); NEUT # 3.7 K/uL (1.8-7.0); NEUT % 52.3 % (50.0-75.0); RBC 3.85 Mil/uL (3.80-5.20); RED CELL DISTRIBUTION WIDTH 14.7 % (11.5-14.5); WHITE BLOOD COUNT 7.1 K/uL (4.8-10.8)
[2018-08-13 08:04] LABS: ALB/GLOB RATIO 1.8 (1.0-2.1); ALBUMIN 4.1 g/dL (3.5-5.0); ALT/SGPT 40 U/L (9-52); AST/SGOT 46 U/L (14-36); BLOOD UREA NITROGEN 7 mg/dL (7-17); CALCIUM 9.1 mg/dl (8.6-10.4); GFR NON-AFRICAN AMERICAN > 60
--- NOTE | 2018-08-13 08:36 | CP.PCM.PN ---
<Aury Jaime - Last Filed: 08/13/18 09:10> Subjective - Date & Time of Evaluation Date of Evaluation: 08/13/18 Time of Evaluation: 08:34 - Subjective Subjective: Gastroenterology Fellow/PGY6 Progress Note Patient notes a few liquid vomitus episodes overnight. Tolerated liquid diet yesterday but notes worsened epigastric pain immediately after having broth and ice cream this morning. Admits to semi-solid stool this morning. A 12-point review of systems negative except for as above. Objective - Vital Signs/Intake and Output Vital Signs (last 24 hours): Temp Pulse Resp BP Pulse Ox 98.3 F 82 20 132/82 98 08/13/18 07:43 08/13/18 07:43 08/13/18 07:43 08/13/18 07:43 08/13/18 07:43 Intake and Output: 08/13/18 08/13/18 06:59 18:59 Intake Total 1300 Balance 1300 - Medications Medications: Current Medications Enoxaparin Sodium (Lovenox) 40 mg SC DAILY [facility] Last Admin: 08/12/18 09:58 Dose: 40 mg Metronidazole (Flagyl) 500 mg in 100 mls @ 100 mls/hr IVPB STAT [facility]; Protocol Last Admin: 08/12/18 00:55 Dose: 100 mls/hr Sodium Chloride (Sodium Chloride 0.9%) 1,000 mls @ 75 mls/hr IV .[id number] [facility] Last Admin: 08/12/18 21:57 Dose: 75 mls/hr Metronidazole (Flagyl) 500 mg in 100 mls @ 100 mls/hr IVPB Q8H [facility]; Protocol Last Admin: 08/13/18 01:00 Dose: 100 mls/hr Ciprofloxacin (Cipro 400mg/200ml Dsw) 400 mg in 200 mls @ 133 mls/hr IVPB Q12H [facility]; Protocol Last Admin: 08/13/18 02:07 Dose: 133 mls/hr Influenza Virus Vaccine (Flucelvax Quad [id number] Syr) 60 mcg IM .ONCE ONE Stop: 08/14/18 10:01 Morphine Sulfate (Morphine) 2 mg IVP Q4 PRN PRN Reason: Pain, moderate (4-7) Last Admin: 08/13/18 07:48 Dose: 2 mg Pantoprazole Sodium (Protonix Ec Tab) 40 mg PO DAILY [facility] Last Admin: 08/12/18 09:58 Dose: 40 mg Pneumococcal Polyvalent Vaccine (Pneumovax 23 Vaccine) 0.5 ml IM .ONCE ONE Stop: 08/14/18 10:01 - Labs Labs: 08/13/18 07:27 08/13/18 07:27 - Constitutional Appears: Non-toxic, No Acute Distress - Head Exam Head Exam: ATRAUMATIC, NORMOCEPHALIC - Eye Exam Eye Exam: EOMI, PERRL. absent: Scleral icterus - ENT Exam ENT Exam: Mucous Membranes Moist, Normal Oropharynx - Neck Exam Neck Exam: Full ROM, Normal Inspection - Respiratory Exam Respiratory Exam: Clear to Ausculation Bilateral. absent: Rales, Rhonchi, Wheezes - Cardiovascular Exam Cardiovascular Exam: RRR, +S1, +S2. absent: Gallop, Rubs - GI/Abdominal Exam GI & Abdominal Exam: Distended, Soft, Tenderness, Normal Bowel Sounds. absent: Firm, Guarding, Rigid, Organomegaly, Rebound - Extremities Exam Extremities Exam: Normal Inspection - Neurological Exam Neurological Exam: Alert, Awake - Psychiatric Exam Psychiatric exam: Normal Affect, Normal Mood - Skin Skin Exam: Dry, Intact, Normal Color, Warm Assessment and Plan - Assessment and Plan (Free Text) Assessment: 47 year old female with PMH of Anxiety, Asthma, and PTSD presenting with postprandial epigastric pain. CT A/P IV contrast showed enterocolitis and constipation. Prior EGD about ten years ago endorsed to have a hiatal hernia. Endorses colonoscopy one year ago to show diverticulosis. Plan: -received stool specimen this morning -pending Cdiff, stool culture, O&P -continue Cipro and Flagyl IV -clear liquid diet, advance as tolerated -PPI ACB -trialed one time dose of -anti-emetics PRN -obtain colonoscopy records for review-patient to confirm physician contact -will benefit from endoscopic evaluation in 6-8 weeks after resolution of enterocolitis for further evaluation and workup -will follow clinical course <Chino Lorenzo - Last Filed: 08/13/18 09:15> Objective - Vital Signs/Intake and Output Vital Signs (last 24 hours): Temp Pulse Resp BP Pulse Ox 98.3 F 82 20 132/82 98 08/13/18 07:43 08/13/18 07:43 08/13/18 07:43 08/13/18 07:43 08/13/18 07:43 Intake and Output: 08/13/18 08/13/18 06:59 18:59 Intake Total 1300 Balance 1300 - Medications Medications: Current Medications Enoxaparin Sodium (Lovenox) 40 mg SC DAILY [facility] Last Admin: 08/12/18 09:58 Dose: 40 mg Metronidazole (Flagyl) 500 mg in 100 mls @ 100 mls/hr IVPB STAT [facility]; Protocol Last Admin: 08/12/18 00:55 Dose: 100 mls/hr Sodium Chloride (Sodium Chloride 0.9%) 1,000 mls @ 75 mls/hr IV .[id number] [facility] Last Admin: 08/12/18 21:57 Dose: 75 mls/hr Metronidazole (Flagyl) 500 mg in 100 mls @ 100 mls/hr IVPB Q8H [facility]; Protocol Last Admin: 08/13/18 01:00 Dose: 100 mls/hr Ciprofloxacin (Cipro 400mg/200ml Dsw) 400 mg in 200 mls @ 133 mls/hr IVPB Q12H [facility]; Protocol Last Admin: 08/13/18 02:07 Dose: 133 mls/hr Influenza Virus Vaccine (Flucelvax Quad [id number] Syr) 60 mcg IM .ONCE ONE Stop: 08/14/18 10:01 Morphine Sulfate (Morphine) 2 mg IVP Q4 PRN PRN Reason: Pain, moderate (4-7) Last Admin: 08/13/18 07:48 Dose: 2 mg Pantoprazole Sodium (Protonix Ec Tab) 40 mg PO DAILY [facility] Last Admin: 08/12/18 09:58 Dose: 40 mg Pneumococcal Polyvalent Vaccine (Pneumovax 23 Vaccine) 0.5 ml IM .ONCE ONE Stop: 08/14/18 10:01 - Labs Labs: 08/13/18 07:27 08/13/18 07:27 Attending/Attestation - Attestation I have personally seen and examined this patient.: Yes I have fully participated in the care of the patient.: Yes I have reviewed all pertinent clinical information, including history, physical exam and plan: Yes Notes (Text): 08/13/18 09:13 I have seen and examined patient with GI fellow. No acute events overnight, she reports one episode of non-bloody emesis this morning. She reports ongoing abdominal pain but improved compared to prior. She had one loose bowel movement this morning, none overnight. She denies fever/chills, weight loss and is tolerating PO diet without difficulty. Review of vitals from today are normal. Anxiety Asthma Abdominal pain - enteritis - Advance diet slowly as tolerated - Continue with antibiotic therapy - Anti-emetic therapy PRN - Follow up stool studies - Attempt to decrease use of narcotic pain medication which may cause ongoing nausea - Will continue to monitor patient clinical course
[2018-08-13] MEDS ORDERED: Belladonna-Phenobarbital PO ONE (09:00)
[2018-08-13] MEDS: Enoxaparin 40 mg Syringe SC SCH (09:31)
[2018-08-13] MEDS: Pantoprazole 40 mg EC Tab PO SCH (09:34)
--- NOTE | 2018-08-13 14:57 | CP.PCM.PN ---
Subjective - Date & Time of Evaluation Date of Evaluation: 08/13/18 Time of Evaluation: 08:30 - Subjective Subjective: clinically same Objective - Vital Signs/Intake and Output Vital Signs (last 24 hours): Temp Pulse Resp BP Pulse Ox 98.3 F 82 20 132/82 98 08/13/18 07:43 08/13/18 07:43 08/13/18 07:43 08/13/18 07:43 08/13/18 07:43 Intake and Output: 08/13/18 08/13/18 06:59 18:59 Intake Total 1300 Balance 1300 - Medications Medications: Current Medications Enoxaparin Sodium (Lovenox) 40 mg SC DAILY [facility] Last Admin: 08/13/18 09:31 Dose: 40 mg Sodium Chloride (Sodium Chloride 0.9%) 1,000 mls @ 75 mls/hr IV .[id number] [facility] Last Admin: 08/12/18 21:57 Dose: 75 mls/hr Metronidazole (Flagyl) 500 mg in 100 mls @ 100 mls/hr IVPB Q8H [facility]; Protocol Last Admin: 08/13/18 09:45 Dose: 100 mls/hr Ciprofloxacin (Cipro 400mg/200ml Dsw) 400 mg in 200 mls @ 133 mls/hr IVPB Q12H [facility]; Protocol Last Admin: 08/13/18 14:15 Dose: 133 mls/hr Influenza Virus Vaccine (Flucelvax Quad [id number] Syr) 60 mcg IM .ONCE ONE Stop: 08/14/18 10:01 Morphine Sulfate (Morphine) 2 mg IVP Q4 PRN PRN Reason: Pain, moderate (4-7) Last Admin: 08/13/18 13:45 Dose: 2 mg Pantoprazole Sodium (Protonix Ec Tab) 40 mg PO ACB [facility] Pneumococcal Polyvalent Vaccine (Pneumovax 23 Vaccine) 0.5 ml IM .ONCE ONE Stop: 08/14/18 10:01 - Labs Labs: 08/13/18 07:27 08/13/18 07:27
[2018-08-13 16:26] LABS: C DIFF TOXIN A B NEGATIVE (NEGATIVE)
--- NOTE | 2018-08-13 16:27 | CP.PCM.PN ---
Subjective - Date & Time of Evaluation Date of Evaluation: 08/13/18 Time of Evaluation: 16:27 - Subjective Subjective: Medicine Progress Note - Dr Wilfredo Martin's service Patient seen and examined at bedside. Per nursing no acute events overnight. Patient reports still having abdominal discomfort with bloating. She also reports a few episodes of vomiting. Objective - Vital Signs/Intake and Output Vital Signs (last 24 hours): Temp Pulse Resp BP Pulse Ox 98.0 F 97 H 20 100/66 97 08/13/18 15:10 08/13/18 15:10 08/13/18 15:10 08/13/18 15:10 08/13/18 15:10 Intake and Output: 08/13/18 08/13/18 06:59 18:59 Intake Total 1300 700 Balance 1300 700 - Medications Medications: Current Medications Enoxaparin Sodium (Lovenox) 40 mg SC DAILY [facility] Last Admin: 08/13/18 09:31 Dose: 40 mg Sodium Chloride (Sodium Chloride 0.9%) 1,000 mls @ 75 mls/hr IV .[id number] [facility] Last Admin: 08/12/18 21:57 Dose: 75 mls/hr Metronidazole (Flagyl) 500 mg in 100 mls @ 100 mls/hr IVPB Q8H [facility]; Protocol Last Admin: 08/13/18 09:45 Dose: 100 mls/hr Ciprofloxacin (Cipro 400mg/200ml Dsw) 400 mg in 200 mls @ 133 mls/hr IVPB Q12H [facility]; Protocol Last Admin: 08/13/18 14:15 Dose: 133 mls/hr Influenza Virus Vaccine (Flucelvax Quad [id number] Syr) 60 mcg IM .ONCE ONE Stop: 08/14/18 10:01 Morphine Sulfate (Morphine) 2 mg IVP Q4 PRN PRN Reason: Pain, moderate (4-7) Last Admin: 08/13/18 13:45 Dose: 2 mg Ondansetron HCl (Zofran Odt) 4 mg PO Q6 PRN PRN Reason: Nausea/Vomiting Pantoprazole Sodium (Protonix Ec Tab) 40 mg PO ACB [facility] Pneumococcal Polyvalent Vaccine (Pneumovax 23 Vaccine) 0.5 ml IM .ONCE ONE Stop: 08/14/18 10:01 - Labs Labs: 08/13/18 07:27 08/13/18 07:27 - Constitutional Appears: Non-toxic, No Acute Distress - Head Exam Head Exam: ATRAUMATIC, NORMAL INSPECTION - Eye Exam Eye Exam: EOMI, Normal appearance Pupil Exam: NORMAL ACCOMODATION - ENT Exam ENT Exam: Mucous Membranes Moist - Neck Exam Neck Exam: Full ROM - Respiratory Exam Respiratory Exam: Clear to Ausculation Bilateral, NORMAL BREATHING PATTERN. absent: Rales, Rhonchi, Wheezes - Cardiovascular Exam Cardiovascular Exam: REGULAR RHYTHM, +S1, +S2 - GI/Abdominal Exam GI & Abdominal Exam: Distended (Mildly), Soft, Tenderness (Mild ), Normal Bowel Sounds. absent: Guarding, Rigid - Extremities Exam Extremities Exam: Normal Inspection. absent: Calf Tenderness - Back Exam Back Exam: NORMAL INSPECTION - Neurological Exam Neurological Exam: Alert, Awake, Oriented x3 - Psychiatric Exam Psychiatric exam: Normal Affect, Normal Mood - Skin Skin Exam: Dry, Normal Color, Warm Assessment and Plan - Assessment and Plan (Free Text) Assessment: Abdominal Pain -Stable, afebrile -Antibiotics: Flagyl 500mg Q8H, Cipro 400mg Q12H IVPB -Advance diet as tolerated -CT abd/pelvis showed Apparent mild circumferential mural thickening in the gastric pylorus, duodenal cap and segmental proximal jejunal loops are nonspecific however could represent nonspecific infectious/inflammatory gastritis, duodenitis and enteritis. Clinical follow-up is advised. Constipation. No bowel obstruction. Mild hepatomegaly and fatty liver. -GI on consult, Dr Lorenzo, help appreciated Asthma -Ventolin as needed GI/DVT ppx: -Protonix 40mg PO daily -Lovenox 40mg SC daily Plan discussed with Dr Wilfredo Monae DO PGY-2
[2018-08-13 20:43] LABS: FECAL LEUKOCYTES NEGATIVE (NEGATIVE)
--- NOTE | 2018-08-13 21:17 | CARD ---
APPROVED REPORT Date of service: 08/11/2018 EKG Measurement Heart [id number] <Conclusion> Normal sinus rhythm Normal ECG
[2018-08-13] MEDS: Sodium Chloride 0.9% 1,000 ML IV SCH (21:30)
[2018-08-14] MEDS: metroNIDAZOLE IV 500 mg/100 ml 500 MG/100 ML BAG IVPB SCH ×2 (00:30→09:54)
[2018-08-14] MEDS: Ciprofloxacin 400mg/200ml D5W 400 MG/200 ML BAG IVPB SCH ×2 (01:54→14:08)
[2018-08-14] MEDS ORDERED: Pantoprazole 40 mg EC Tab PO SCH (07:30)
[2018-08-14 07:46] VITALS: O2SAT 95
[2018-08-14 08:20] LABS: BASO % 0.6 % (0.0-2.0); EOS # 0.1 K/uL (0.0-0.7); EOS % 1.7 % (0.0-4.0); HEMOGLOBIN 12.1 g/dL (11.0-16.0); LYMPH # 2.1 K/uL (1.0-4.3); LYMPH % 38.1 % (20.0-40.0); MEAN CELL VOLUME 96.5 fL (81.0-99.0); MEAN CORPUSCULAR HEMOGLOBIN 32.6 pg (27.0-31.0); MEAN CORPUSCULAR HGB CONC 33.8 g/dL (33.0-37.0); MEAN PLATELET VOLUME 7.3 fL (7.2-11.7); MONO # 0.4 K/uL (0.0-0.8); MONO % 7.4 % (0.0-10.0); NEUT # 2.9 K/uL (1.8-7.0); NEUT % 52.2 % (50.0-75.0); NRBC % 0.1 % (0.0-2.0); RBC 3.7 Mil/uL (3.80-5.20); RED CELL DISTRIBUTION WIDTH 14.5 % (11.5-14.5); WHITE BLOOD COUNT 5.5 K/uL (4.8-10.8)
[2018-08-14 08:32] LABS: ALB/GLOB RATIO 1.9 (1.0-2.1); ALBUMIN 3.8 g/dL (3.5-5.0); ALT/SGPT 66 U/L (9-52); AST/SGOT 81 U/L (14-36); BLOOD UREA NITROGEN 5 mg/dL (7-17); CALCIUM 9.1 mg/dl (8.6-10.4); GFR NON-AFRICAN AMERICAN > 60
--- NOTE | 2018-08-14 09:31 | CP.PCM.PN ---
<Aury Jaime - Last Filed: 08/14/18 09:27> Subjective - Date & Time of Evaluation Date of Evaluation: 08/14/18 Time of Evaluation: 09:27 - Subjective Subjective: Gastroenterology Fellow/PGY6 Progress Note Patient notes describes gagging on part of chicken that she attributes to dry consistency. Tolerated liquid diet without vomiting. States she is hungry. A 12-point review of systems negative except for as above. Objective - Vital Signs/Intake and Output Vital Signs (last 24 hours): Temp Pulse Resp BP Pulse Ox 98.4 F 84 20 114/61 95 08/14/18 07:44 08/14/18 07:44 08/14/18 07:44 08/14/18 07:44 08/14/18 07:44 Intake and Output: 08/14/18 08/14/18 06:59 18:59 Intake Total 1760 Balance 1760 - Medications Medications: Current Medications Enoxaparin Sodium (Lovenox) 40 mg SC DAILY [facility] Last Admin: 08/13/18 09:31 Dose: 40 mg Sodium Chloride (Sodium Chloride 0.9%) 1,000 mls @ 75 mls/hr IV .[id number] [facility] Last Admin: 08/13/18 21:30 Dose: 75 mls/hr Metronidazole (Flagyl) 500 mg in 100 mls @ 100 mls/hr IVPB Q8H [facility]; Protocol Last Admin: 08/14/18 00:30 Dose: 100 mls/hr Ciprofloxacin (Cipro 400mg/200ml Dsw) 400 mg in 200 mls @ 133 mls/hr IVPB Q12H [facility]; Protocol Last Admin: 08/14/18 01:54 Dose: 133 mls/hr Influenza Virus Vaccine (Flucelvax Quad 1000-2033 Syr) 60 mcg IM .ONCE ONE Stop: 08/14/18 10:01 Morphine Sulfate (Morphine) 1 mg IVP Q4 PRN PRN Reason: Pain, moderate (4-7) Last Admin: 08/14/18 08:14 Dose: 1 mg Ondansetron HCl (Zofran Odt) 4 mg PO Q6 PRN PRN Reason: Nausea/Vomiting Pantoprazole Sodium (Protonix Ec Tab) 40 mg PO ACB [facility] Last Admin: 08/14/18 07:52 Dose: 40 mg Pneumococcal Polyvalent Vaccine (Pneumovax 23 Vaccine) 0.5 ml IM .ONCE ONE Stop: 08/14/18 10:01 - Labs Labs: 08/14/18 08:09 08/14/18 08:09 - Constitutional Appears: Non-toxic, No Acute Distress - Head Exam Head Exam: ATRAUMATIC, NORMOCEPHALIC - Eye Exam Eye Exam: EOMI, PERRL. absent: Scleral icterus Pupil Exam: PERRL. absent: Miosis, Mydriatic - ENT Exam ENT Exam: Mucous Membranes Moist, Normal Oropharynx - Neck Exam Neck Exam: Full ROM, Normal Inspection - Respiratory Exam Respiratory Exam: Clear to Ausculation Bilateral. absent: Rales, Rhonchi, Wheezes - Cardiovascular Exam Cardiovascular Exam: RRR, +S1, +S2. absent: Gallop, Rubs - GI/Abdominal Exam GI & Abdominal Exam: Soft, Tenderness, Normal Bowel Sounds. absent: Distended, Firm, Guarding, Rigid, Organomegaly, Rebound Additional comments: mild epigastic tenderness to palpation - Extremities Exam Extremities Exam: Normal Inspection. absent: Pedal Edema - Neurological Exam Neurological Exam: Alert, Awake - Psychiatric Exam Psychiatric exam: Normal Affect, Normal Mood - Skin Skin Exam: Dry, Intact, Normal Color, Warm Assessment and Plan - Assessment and Plan (Free Text) Assessment: 47 year old female with PMH of Anxiety, Asthma, and PTSD presenting with postprandial epigastric pain. CT A/P IV contrast showed enterocolitis and constipation. Prior EGD about ten years ago endorsed to have a hiatal hernia. Endorses colonoscopy one year ago to show diverticulosis. Plan: -received stool specimen this morning -C. 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 to obtain colonoscopy records -will follow clinical course I h <Chino Lorenzo - Last Filed: 08/14/18 12:14> Objective - Vital Signs/Intake and Output Vital Signs (last 24 hours): Temp Pulse Resp BP Pulse Ox 98.4 F 84 20 114/61 95 08/14/18 07:44 08/14/18 07:44 08/14/18 07:44 08/14/18 07:44 08/14/18 07:44 Intake and Output: 08/14/18 08/14/18 06:59 18:59 Intake Total 1760 Balance 1760 - Medications Medications: Current Medications Enoxaparin Sodium (Lovenox) 40 mg SC DAILY [facility] Last Admin: 08/14/18 09:55 Dose: 40 mg Sodium Chloride (Sodium Chloride 0.9%) 1,000 mls @ 75 mls/hr IV .[id number] [facility] Last Admin: 08/13/18 21:30 Dose: 75 mls/hr Metronidazole (Flagyl) 500 mg in 100 mls @ 100 mls/hr IVPB Q8H [facility]; Protocol Last Admin: 08/14/18 09:54 Dose: 100 mls/hr Ciprofloxacin (Cipro 400mg/200ml Dsw) 400 mg in 200 mls @ 133 mls/hr IVPB Q12H [facility]; Protocol Last Admin: 08/14/18 01:54 Dose: 133 mls/hr Morphine Sulfate (Morphine) 1 mg IVP Q4 PRN PRN Reason: Pain, moderate (4-7) Last Admin: 08/14/18 08:14 Dose: 1 mg Ondansetron HCl (Zofran Odt) 4 mg PO Q6 PRN PRN Reason: Nausea/Vomiting Pantoprazole Sodium (Protonix Ec Tab) 40 mg PO ACB [facility] Last Admin: 08/14/18 07:52 Dose: 40 mg - Labs Labs: 08/14/18 08:09 08/14/18 08:09 Attending/Attestation - Attestation I have personally seen and examined this patient.: Yes I have fully participated in the care of the patient.: Yes I have reviewed all pertinent clinical information, including history, physical exam and plan: Yes Notes (Text): 08/14/18 12:11 I have seen and examined patient with GI fellow. No acute events overnight, she reports one episode of emesis yesterday following attempted consumption of chicken. She otherwise denies abdominal pain, nausea, fever/chills. Review of vitals from today are normal. Anxiety Asthma Abdominal pain Enteritis - Diet as tolerated - Follow up stool studies - Continue with PPI therapy - If patient tolerating PO diet without difficulty, from GI standpoint ok to discharge home with subsequent outpatient follow up. If patient with recurrent vomiting, would consider EGD evaluation tomorrow.
[2018-08-14] MEDS: Enoxaparin 40 mg Syringe SC SCH (09:55)
[2018-08-14] MEDS ORDERED: Pneumococcal 23-Valent Vaccine IM ONE (10:00)
[2018-08-14] MEDS ORDERED: Influenza Vaccine 60 mcg/0.5 mL SYR (4YR UP) IM ONE (10:00)
--- NOTE | 2018-08-14 11:23 | CP.PCM.PN ---
Subjective - Date & Time of Evaluation Date of Evaluation: 08/14/18 Time of Evaluation: 11:22 - Subjective Subjective: Medicine Progress Note - Dr Wilfredo Martin's service Patient seen and examined at bedside. Per nursing no acute events overnight. Patient is doing well, states that she vomited once yesterday after eating chicken but was able to tolerate her food so far today. Offers no other complaints at this time. Objective - Vital Signs/Intake and Output Vital Signs (last 24 hours): Temp Pulse Resp BP Pulse Ox 98.4 F 84 20 114/61 95 08/14/18 07:44 08/14/18 07:44 08/14/18 07:44 08/14/18 07:44 08/14/18 07:44 Intake and Output: 08/14/18 08/14/18 06:59 18:59 Intake Total 1760 Balance 1760 - Medications Medications: Current Medications Enoxaparin Sodium (Lovenox) 40 mg SC DAILY GRANT Last Admin: 08/14/18 09:55 Dose: 40 mg Sodium Chloride (Sodium Chloride 0.9%) 1,000 mls @ 75 mls/hr IV .[id number] GRANT Last Admin: 08/13/18 21:30 Dose: 75 mls/hr Metronidazole (Flagyl) 500 mg in 100 mls @ 100 mls/hr IVPB Q8H GRANT; Protocol Last Admin: 08/14/18 09:54 Dose: 100 mls/hr Ciprofloxacin (Cipro 400mg/200ml Dsw) 400 mg in 200 mls @ 133 mls/hr IVPB Q12H GRANT; Protocol Last Admin: 08/14/18 01:54 Dose: 133 mls/hr Morphine Sulfate (Morphine) 1 mg IVP Q4 PRN PRN Reason: Pain, moderate (4-7) Last Admin: 08/14/18 08:14 Dose: 1 mg Ondansetron HCl (Zofran Odt) 4 mg PO Q6 PRN PRN Reason: Nausea/Vomiting Pantoprazole Sodium (Protonix Ec Tab) 40 mg PO ACB GRANT Last Admin: 08/14/18 07:52 Dose: 40 mg Potassium Chloride (K-Dur 20 Meq Er Tab) 40 meq PO ONCE ONE Stop: 08/14/18 11:23 - Labs Labs: 08/14/18 08:09 08/14/18 08:09 - Constitutional Appears: Non-toxic, No Acute Distress - Head Exam Head Exam: ATRAUMATIC, NORMAL INSPECTION - Eye Exam Eye Exam: EOMI, Normal appearance - ENT Exam ENT Exam: Mucous Membranes Moist - Neck Exam Neck Exam: Full ROM - Respiratory Exam Respiratory Exam: Clear to Ausculation Bilateral, NORMAL BREATHING PATTERN - Cardiovascular Exam Cardiovascular Exam: REGULAR RHYTHM, +S1, +S2 - GI/Abdominal Exam GI & Abdominal Exam: Distended (Mild ), Soft. absent: Guarding, Rigid, Tenderness - Extremities Exam Extremities Exam: Normal Inspection. absent: Calf Tenderness - Neurological Exam Neurological Exam: Alert, Awake, Normal Gait, Oriented x3 - Psychiatric Exam Psychiatric exam: Normal Affect, Normal Mood Assessment and Plan - Assessment and Plan (Free Text) Assessment: Abdominal Pain, Enteritis -Stable, afebrile -Antibiotics: Flagyl 500mg Q8H, Cipro 400mg Q12H IVPB -Advance diet as tolerated -C diff and stool leukocytes are negative -CT abd/pelvis showed Apparent mild circumferential mural thickening in the gastric pylorus, duodenal cap and segmental proximal jejunal loops are nonspecific however could represent nonspecific infectious/inflammatory gastritis, duodenitis and enteritis. Clinical follow-up is advised. Co nstipation. No bowel obstruction. Mild hepatomegaly and fatty liver. -GI on consult, Dr Lorenzo, help appreciated Asthma -Ventolin as needed GI/DVT ppx: -Protonix 40mg PO daily -Lovenox 40mg SC daily DISPO: If patient tolerates dinner will discharge home with PO antibiotics. She is to follow up with GI outpatient Plan discussed with Dr Wilfredo Monae DO PGY-2
[2018-08-14] MEDS ORDERED: Potassium Chloride 20 mEq ER Tab PO ONE (11:30)
[2018-08-14] MEDS: Sodium Chloride 0.9% 1,000 ML IV SCH (13:27)
[2018-08-14 17:24] VITALS: BP 110/59; PULSE 86; TEMP 97.6
--- NOTE | 2018-08-14 22:32 | CP.PCM.PN ---
Subjective - Date & Time of Evaluation Date of Evaluation: 08/14/18 Objective - Vital Signs/Intake and Output Vital Signs (last 24 hours): Temp Pulse Resp BP Pulse Ox 97.6 F 86 20 110/59 L 95 08/14/18 16:00 08/14/18 16:00 08/14/18 16:00 08/14/18 16:00 08/14/18 16:00 Intake and Output: 08/14/18 08/15/18 18:59 06:59 Intake Total 750 Balance 750 - Labs Labs: 08/14/18 08:09 08/14/18 08:09
== END 2018-08-14 18:02 | disposition home or self-care (01) | DRG 814 ==
LOC: C.ER 19:15 → C.3T 08-12 00:38
PROVIDERS: ADMIT Internal Medicine Nephrology; ATTEND Internal Medicine Nephrology
DX: K52.9 Noninfective gastroenteritis and colitis, unspecified (principal); K59.00 Constipation, unspecified; K21.9 Gastro-esophageal reflux disease without esophagitis; K44.9 Diaphragmatic hernia without obstruction or gangrene; J45.909 Unspecified asthma, uncomplicated; F43.10 Post-traumatic stress disorder, unspecified; F17.210 Nicotine dependence, cigarettes, uncomplicated; K76.0 Fatty (change of) liver, not elsewhere classified; R16.0 Hepatomegaly, not elsewhere classified; Z80.0 Family history of malignant neoplasm of digestive organs; Z80.3 Family history of malignant neoplasm of breast